=== PATIENT | male | born 1990 | race Caucasian/White ===

== ENCOUNTER 2017-04-06 16:09 | Emergency (ER) | payer SELFPAY ==
--- NOTE | 2017-04-06 16:31 | EDM.PDOC ---
ED HPI GENERAL MEDICAL PROBLEM - General Chief Complaint: Upper Extremity Injury/Pain Stated Complaint: ALL OVER PAIN Time Seen by Provider: 04/06/17 16:31 Source of Information: Reports: Patient History Limitations: Reports: No Limitations - History of Present Illness INITIAL COMMENTS - FREE TEXT/NARRATIVE: HISTORY AND PHYSICAL: History of present illness: [Comes to the emergency room with multiple complaints including discomfort to his left neck, swelling to his left hand and pain to his right knee. He woke up with all of these symptoms on the morning of 04/02. He was evaluated at [facility] on that date and was notified of normal lab results today. He re- presented to [facility] this afternoon and was advised to come to the ER for evaluation and workup. Has felt feverish and had chills for the past 3 days. No earaches sore throat or runny nose. He was treated for sinusitis with amoxicillin prescribed at [place] which he completed prior to development of these symptoms. No abdominal pain nausea or vomiting. He has had decreased appetite for the past couple of days. No Abdominal pain. No change in bowel or bladder. He has no other complaints or concerns at this time. Denies any trauma or known injury to his left hand.] Review of systems: As per history of present illness and below otherwise all systems reviewed and negative. Past medical history: As per history of present illness and as reviewed below otherwise noncontributory. Surgical history: As per history of present illness and as reviewed below otherwise noncontributory. Social history: No reported history of drug or alcohol abuse. Family history: As per history of present illness and as reviewed below otherwise noncontributory. Physical exam: HEENT: Atraumatic, normocephalic. Oral mucous membranes are pink and moist. Nares are patent. Neck is supple. There is no lymphadenopathy or tenderness appreciated with palpation. Sinuses are not edematous or tender. Lungs: Clear to auscultation, breath sounds equal bilaterally. Heart: S1S2, regular rate and rhythm., No murmur. Abdomen: Soft, nondistended, nontender. Negative for masses guarding or rebound. Negative for costovertebral tenderness. Pelvis: Stable nontender. Genitourinary: Deferred. Rectal: Deferred. Extremities: Dorsum of left hand is swollen and erythematous. Erythema appears to begin to the PIP joint of his thumb and extends across the dorsum of his hand. Continues to spread well patient is in the emergency room. Is tender with palpation. No scabs, lesions or rashes. No wounds or evidence of trauma. Radial pulses are 2+ and equal bilaterally. Neurovascular unremarkable. Neuro: Awake, alert, oriented. Motor and sensory unremarkable throughout. Exam nonfocal. Diagnostics: [L hand x-ray, CBC, CMP] Therapeutics: [Rocephin 1 g IM, Toradol 30 mg IM, Tylenol 1000 mg by mouth] Impression: [Left hand cellulitis] Plan: [Discussed lab and x-ray findings with patient. Will treat as a left hand cellulitis with Rocephin 1 g in the ER. Toradol 30 mg IM and acetaminophen 1000 mg by mouth given for pain. Rx written for clindamycin 300 mg #40 sig one by mouth every 6 hours for 10 days 0 refills. Urged him to establish care with a local PCP. Strict return precautions are reviewed with the patient and his family. They are in agreement with today's plan.] Definitive disposition and diagnosis as appropriate pending reevaluation and review of above. Left Hand Pain Score (Numeric/FACES): 7 - Related Data Allergies Allergy/AdvReac Type Severity Reaction Status Date / Time No Known Allergies Allergy Verified 04/06/17 16:22 Home Meds: Home Meds . [No Known Home Meds] 04/06/17 [History] Past Medical History - Past Health History Medical/Surgical History: Denies Medical/Surgical History - Infectious Disease History Infectious Disease History: Reports: Chicken Pox - Past Surgical History GI Surgical History: Reports: Appendectomy Social & Family History - Family History Family Medical History: Noncontributory - Tobacco Use Smoking Status *Q: Current Every Day Smoker Years of Tobacco use: 15 Packs/Tins Daily: 0.5 - Recreational Drug Use Recreational Drug Use: No Review of Systems - Review of Systems Review Of Systems: ROS reveals no pertinent complaints other than HPI. ED EXAM, GENERAL - Physical Exam Exam: See Below Course - Vital Signs Last Recorded V/S: Last Vital Signs Temp 99.2 F 04/06/17 18:37 Pulse 102 H 04/06/17 18:37 Resp 16 04/06/17 18:37 BP 119/77 04/06/17 18:37 Pulse Ox 96 04/06/17 18:37 - Orders/Labs/Meds Orders: Active Orders 24 hr Category Date Time Status Hand 2V Lt [CR] Stat Exams 04/06/17 17:01 Taken Labs: Laboratory Tests 04/06/17 04/06/17 Range/Units 17:27 17:27 WBC 14.51 H (4.0-11.0) K/uL RBC 5.39 (4.50-5.90) M/uL Hgb 15.4 (13.0-17.0) g/dL Hct 46.6 (38.0-50.0) % MCV 86.5 (80.0-98.0) fL MCH 28.6 (27.0-32.0) pg MCHC 33.0 (31.0-37.0) g/dL RDW Std Deviation 41.7 (28.0-62.0) fl RDW Coeff of Rosario 13 (11.0-15.0) % Plt Count 279 (150-400) K/uL MPV 9.20 (7.40-12.00) fL Neut % (Auto) 73.6 (48.0-80.0) % Lymph % (Auto) 16.2 (16.0-40.0) % [place] % (Auto) 7.8 (0.0-15.0) % Eos % (Auto) 2.3 (0.0-7.0) % Baso % (Auto) 0.1 (0.0-1.5) % Neut # (Auto) 10.7 H (1.4-5.7) K/uL Lymph # (Auto) 2.4 (0.6-2.4) K/uL [place] # (Auto) 1.1 H (0.0-0.8) K/uL Eos # (Auto) 0.3 (0.0-0.7) K/uL Baso # (Auto) 0.0 (0.0-0.1) K/uL Nucleated RBC % 0.0 /100WBC Nucleated RBCs # 0 K/uL Sodium 138 (136-146) mmol/L Potassium 3.8 (3.5-5.1) mmol/L Chloride 101 (98-110) mmol/L Carbon Dioxide 27 (21-31) mmol/L BUN 9 (6.0-23.0) mg/dL Creatinine 0.8 (0.6-1.5) mg/dL Est Cr Clr Drug Dosing 131.81 mL/min Estimated GFR (MDRD) > 60.0 ml/min Glucose 97 (60-110) mg/dL Calcium 9.6 (8.8-10.8) mg/dL Total Bilirubin 0.3 (0.1-1.5) mg/dL AST 26 (5-40) IU/L ALT 44 (8-54) IU/L Alkaline Phosphatase 110 (40-150) Total Protein 7.9 (6.0-8.0) g/dL Albumin 3.8 (3.5-5.0) g/dL Globulin 4.1 H (2.0-3.5) g/dL Albumin/Globulin Ratio 0.9 L (1.3-2.8) Meds: Medications Discontinued Medications Generic Name Dose Route Start Last Admin Trade Name Freq PRN Reason Stop Dose Admin Acetaminophen 1,000 mg 04/06/17 18:35 Tylenol Extra Strength PO 04/06/17 18:36 ONETIME ONE Ceftriaxone Sodium 1,000 mg/ 4 mls @ 4 mls/sec 04/06/17 18:35 Lidocaine HCl IM 04/06/17 18:36 ONETIME ONE Ketorolac Tromethamine 60 mg 04/06/17 18:35 Toradol IM 04/06/17 18:36 ONETIME ONE Departure - Departure Time of Disposition: 18:52 Disposition: Home, Self-Care 01 Condition: Good Clinical Impression: Cellulitis of left hand - Discharge Information Referrals: PCP,None [Primary Care Provider] - Forms: ED Department Discharge Additional Instructions: The following information is given to patients seen in the emergency department who are being discharged to home. This information is to outline your options for follow-up care. We provide all patients seen in our emergency department with a follow-up referral. The need for follow-up, as well as the timing and circumstances, are variable depending upon the specifics of your emergency department visit. If you don't have a primary care physician on staff, we will provide you with a referral. We always advise you to contact your personal physician following an emergency department visit to inform them of the circumstance of the visit and for follow-up with them and/or the need for any referrals to a consulting specialist. The emergency department will also refer you to a specialist when appropriate. This referral assures that you have the opportunity for follow-up care with a specialist. All of these measure are taken in an effort to provide you with optimal care, which includes your follow-up. Under all circumstances we always encourage you to contact your private physician who remains a resource for coordinating your care. When calling for follow-up care, please make the office aware that this follow-up is from your recent emergency room visit. If for any reason you are refused follow-up, please contact the emergency department at and asked to speak to the emergency department charge nurse. Primary Care [address] [place] [id number] Establish care with a local primary care provider in follow-up there in the next 48-72 hours. Tylenol or ibuprofen as needed for discomfort. Return to ER as needed as discussed. - My Orders Last 24 Hours: My Active Orders 04/06/17 17:01 Hand 2V Lt [CR] Stat - Assessment/Plan Last 24 Hours: My Active Orders 04/06/17 17:01 Hand 2V Lt [CR] Stat
[2017-04-06 18:03] LABS: CHLORIDE,CL 101 mmol/L (98-110); SODIUM,NA 138 mmol/L (136-146)
[2017-04-06] MEDS ORDERED: cefTRIAXone 1,000 MG in Lidocaine 1% 4 ML IM ONE (18:35)
[2017-04-06] MEDS ORDERED: Ketorolac 60 MG/2 ML SDV IM ONE (18:35)
[2017-04-06] MEDS ORDERED: Acetaminophen 500 MG Tab PO ONE (18:35)
--- NOTE | 2017-04-07 13:59 | CR ---
EXAM DATE: 04/06/17 PATIENT'S AGE: 27 Patient: ROSINA PALMA Facility: [place], [place] Site . Site : 1990 Study: XRay Extremity hand [id number] 5:31:31 PM Ordering Physician: Jenny Potter Final Report: INDICATION: Pain and swelling. No known injury. TECHNIQUE: Left hand, two views. COMPARISON: None FINDINGS: Bones: Ulnar minus variance. No acute fractures or aggressive osseous lesions seen. Joint spaces: The carpal and metacarpal-phalangeal joints are unremarkable in appearance. The interphalangeal joints are normal in appearance. Soft tissues: Unremarkable. No radiopaque foreign bodies are noted. IMPRESSION: 1. No acute osseous injuries are identified. 2. Ulnar minus variance of the left wrist. Dictated by Armand Pham MD @ 04/06/2017 6:15:46 PM Dictated by: Armand Pham MD @ 04/06/2017 18:15:52 (Electronic Signature) Report Signed by Proxy. [facility] HOSPITALFroy
== END 2017-04-06 19:37 | disposition home or self-care (01) ==
LOC: MW.ED 16:09
DX: L03.114 Cellulitis of left upper limb (principal); F17.210 Nicotine dependence, cigarettes, uncomplicated
CPT/HCPCS: 36415; 73120; 80053; 85025; 96372; 99284; A9270; J0696; J1885; 99283

== ENCOUNTER 2017-04-15 19:49 | Inpatient (IN) | payer SELFPAY ==
[2017-04-15] MEDS ORDERED: Sodium Chloride 0.9% 1,000 ML IV ONE ×2 (20:35→22:45)
[2017-04-15] MEDS ORDERED: Ketorolac 30 MG/ML SDV IVPUSH ONE (20:35)
[2017-04-15] MEDS ORDERED: Acetaminophen 500 MG Tab PO ONE (20:51)
[2017-04-15 21:15] LABS: CHLORIDE,CL 105 mmol/L (98-110); SODIUM,NA 138 mmol/L (136-146)
[2017-04-15] MEDS ORDERED: Lidocaine 1% 20 ML MDV INJECT ONE (22:16)
--- NOTE | 2017-04-15 22:16 | EDM.PDOC ---
ED HPI GENERAL MEDICAL PROBLEM - General Chief Complaint: Lower Extremity Injury/Pain Stated Complaint: UNK Time Seen by Provider: 04/15/17 22:10 Source of Information: Reports: Patient, Provider - History of Present Illness INITIAL COMMENTS - FREE TEXT/NARRATIVE: He has been on po antibiotics for pain and erythema of the right knee. He has pain in the right knee and left shoulder and right ankle. no penile discharge no recent sexual relations no suspected STD no vomiting he might have had a fever no history of gout Right Knee Pain Score (Numeric/FACES): 10 - Related Data Allergies Allergy/AdvReac Type Severity Reaction Status Date / Time No Known Allergies Allergy Verified 04/15/17 20:18 Home Meds: Home Meds Clindamycin HCl 300 mg PO Q6H 04/15/17 [History] Past Medical History - Past Health History Medical/Surgical History: Denies Medical/Surgical History - Infectious Disease History Infectious Disease History: Reports: Chicken Pox - Past Surgical History GI Surgical History: Reports: Appendectomy Social & Family History - Family History Family Medical History: Noncontributory - Tobacco Use Smoking Status *Q: Current Every Day Smoker Years of Tobacco use: 17 Packs/Tins Daily: 1 - Caffeine Use Caffeine Use: Reports: Soda - Recreational Drug Use Recreational Drug Use: No Review of Systems - Review of Systems Review Of Systems: See Below (as per HPI) ED EXAM, GENERAL - Physical Exam Exam: See Below Free Text/Narrative:: alert nad right knee: held in flexion; warm and tender; erythema; moderate effusion; no deformity right ankle: mild diffuse tenderness without palpable swelling or increased warmth or erythema; no deformity left shoulder: mild diffuse warmth and tenderness; some pain with motion; no erythema; no deformity normal mentation ED TRAUMA EXTREMITY PROCEDURES - Additional/Other Procedure(s) Other (Free Text) Procedure(s): after verbal consent, the left knee was prepared by cleansing with betadine and hibiclens. Then about 5-20 ml of lidocaine 1% injected medial to the knee. The knee joint was then entered with a sterile 18 g needle and about 25 ml of cloudy / bloody/ purulent appearing joint fluid aspirated and sent for routine studies including crystal analysis. He tolerated the procedure without complications. Course - Vital Signs Last Recorded V/S: Last Vital Signs Temp 98.7 F 04/15/17 23:06 Pulse 92 04/15/17 23:06 Resp 17 04/15/17 23:06 BP 140/87 04/15/17 23:06 Pulse Ox 97 04/15/17 23:06 - Orders/Labs/Meds Orders: Active Orders 24 hr Category Date Time Status Patient Status [ADT] Routine ADT 04/15/17 23:52 Ordered Oxygen Therapy [RC] PRN Care 04/15/17 23:52 Ordered VTE/DVT Education [RC] PER UNIT ROUTINE Care 04/15/17 23:52 Ordered Vital Signs [RC] Q4H Care 04/15/17 23:52 Ordered Regular Diet [DIET] Diet 04/15/17 Breakfast Ordered Foot Comp Min 3V Rt [CR] Stat Exams 04/15/17 20:51 Taken Hand 2V Lt [CR] Stat Exams 04/15/17 20:51 Taken Knee 3V Rt [CR] Stat Exams 04/15/17 20:36 Taken GENEVA SCREEN RFLX [REF] AM Lab 04/16/17 05:11 Ordered C-REACTIVE PROTEIN [CHEM] Stat Lab 04/15/17 23:52 Ordered CBC WITH AUTO DIFF [HEME] AM Lab 04/16/17 05:11 Ordered CBC WITH AUTO DIFF [HEME] AM Lab 04/17/17 05:11 Ordered CBC WITH AUTO DIFF [HEME] AM Lab 04/18/17 05:11 Ordered COMPREHENSIVE METABOLIC PN,CMP [CHEM] AM Lab 04/16/17 05:11 Ordered COMPREHENSIVE METABOLIC PN,CMP [CHEM] AM Lab 04/17/17 05:11 Ordered COMPREHENSIVE METABOLIC PN,CMP [CHEM] AM Lab 04/18/17 05:11 Ordered CULTURE BODY FLUID + SMEAR [RM] Stat Lab 04/15/17 22:43 Ordered LYME/B.BURGDORFERI IGG/IGM [REF] Stat Lab 04/15/17 23:52 Ordered MAGNESIUM [CHEM] AM Lab 04/16/17 05:11 Ordered RHEUMATOID FACT.W/RFX TO TITER [CHEM] AM Lab 04/16/17 05:11 Ordered SEDIMENTATION RATE AUTO [HEME] AM Lab 04/16/17 05:11 Ordered Bisacodyl [Dulcolax] Med 04/15/17 23:52 Ordered 5 mg PO DAILY PRN Cefepime [Maxipime in D5W 1 GM/50 ML] 1 gm Med 04/15/17 23:45 Ordered Premix Bag 1 bag IV Q8H Docusate Sodium [Colace] Med 04/15/17 23:52 Ordered 100 mg PO BID PRN Ibuprofen [Motrin] Med 04/16/17 06:00 Ordered 400 mg PO TID Ketorolac [Toradol] Med 04/15/17 23:52 Ordered 30 mg IV Q6H PRN Morphine Med 04/15/17 23:52 Ordered 5 mg IVPUSH Q2H PRN Sodium Chloride 0.9% [Saline Flush] Med 04/15/17 23:52 Ordered 10 ml FLUSH ASDIRECTED PRN Sodium Chloride 0.9% [Saline Flush] Med 04/15/17 23:52 Ordered 2.5 ml FLUSH ASDIRECTED PRN Temazepam [Restoril] Med 04/15/17 23:52 Ordered 15 mg PO BEDTIME PRN Vancomycin 1.5 gm Med 04/16/17 00:00 Active Sodium Chloride 0.9% [Normal Saline] 500 ml IV ONETIME Vancomycin Pharmacy to Dose [Pharmacy to Dose - Med 04/15/17 23:45 Ordered Vancomycin] 1 dose .XX ASDIRECTED methylPREDNISolone Sod Succ [Solu-MEDROL] Med 04/15/17 23:45 Ordered 125 mg IVPUSH Q12H Saline Lock Insert [OM.PC] Routine Oth 04/15/17 23:52 Ordered Resuscitation Status Routine Resus Stat 04/15/17 23:52 Ordered Medication Orders Bisacodyl (Dulcolax) 5 mg PO DAILY PRN PRN Reason: Constipation Docusate Sodium (Colace) 100 mg PO BID PRN PRN Reason: Constipation Cefepime HCl 1 gm/ Premix 50 mls @ 100 mls/hr IV Q8H AYAH Vancomycin HCl 1.5 gm/ Sodium (Chloride) 500 mls @ 333.333 mls/hr IV ONETIME ONE Stop: 04/16/17 01:29 Ibuprofen (Motrin) 400 mg PO TID AYAH Ketorolac Tromethamine (Toradol) 30 mg IV Q6H PRN PRN Reason: Pain (moderate 4-6) Methylprednisolone Sodium Succinate (Solu-Medrol) 125 mg IVPUSH Q12H AYAH Vancomycin HCl (Pharmacy To Dose - Vancomycin) 1 dose .XX ASDIRECTED [facility] Labs: Laboratory Tests 04/15/17 04/15/17 04/15/17 Range/Units 20:45 20:45 20:45 WBC 19.04 H (4.0-11.0) K/uL RBC 5.58 (4.50-5.90) M/uL Hgb 16.0 (13.0-17.0) g/dL Hct 46.6 (38.0-50.0) % MCV 83.5 (80.0-98.0) fL MCH 28.7 (27.0-32.0) pg MCHC 34.3 (31.0-37.0) g/dL RDW Std Deviation 38.5 (28.0-62.0) fl RDW Coeff of Rosario 13 (11.0-15.0) % Plt Count 372 (150-400) K/uL MPV 8.80 (7.40-12.00) fL Neut % (Auto) 76.2 (48.0-80.0) % Lymph % (Auto) 14.3 L (16.0-40.0) % [place] % (Auto) 8.2 (0.0-15.0) % Eos % (Auto) 1.0 (0.0-7.0) % Baso % (Auto) 0.3 (0.0-1.5) % Neut # (Auto) 14.5 H (1.4-5.7) K/uL Lymph # (Auto) 2.7 H (0.6-2.4) K/uL [place] # (Auto) 1.6 H (0.0-0.8) K/uL Eos # (Auto) 0.2 (0.0-0.7) K/uL Baso # (Auto) 0.1 (0.0-0.1) K/uL Nucleated RBC % 0.0 /100WBC Nucleated RBCs # 0 K/uL ESR (0-14) mm/hr Lactate 1.4 (0.20-2.00) mmol/L Sodium 138 (136-146) mmol/L Potassium 3.8 (3.5-5.1) mmol/L Chloride 105 (98-110) mmol/L Carbon Dioxide 19 L (21-31) mmol/L BUN 13 (6.0-23.0) mg/dL Creatinine 0.9 (0.6-1.5) mg/dL Est Cr Clr Drug Dosing 117.17 mL/min Estimated GFR (MDRD) > 60.0 ml/min Glucose 98 (60-110) mg/dL Uric Acid (2.1-7.4) mg/dL Calcium 9.6 (8.8-10.8) mg/dL Total Bilirubin 0.4 (0.1-1.5) mg/dL AST 65 H (5-40) IU/L ALT 134 H (8-54) IU/L Alkaline Phosphatase 130 (40-150) Total Protein 8.8 H (6.0-8.0) g/dL Albumin 4.0 (3.5-5.0) g/dL Globulin 4.8 H (2.0-3.5) g/dL Albumin/Globulin Ratio 0.8 L (1.3-2.8) Amylase 42 (10-90) U/L Lipase < 9 (7-80) U/L Fluid Type Fluid Color Fluid Appearance Fluid pH Fluid WBC K/uL Fluid RBC M/uL Fluid Mononuclear Cell % Fl Polymorphonucl Cell % Fluid Crystals Fluid Glucose mg/dL Fluid Total Protein g/dL 04/15/17 04/15/17 04/15/17 Range/Units 20:45 20:45 22:39 WBC (4.0-11.0) K/uL RBC (4.50-5.90) M/uL Hgb (13.0-17.0) g/dL Hct (38.0-50.0) % MCV (80.0-98.0) fL MCH (27.0-32.0) pg MCHC (31.0-37.0) g/dL RDW Std Deviation (28.0-62.0) fl RDW Coeff of Rosario (11.0-15.0) % Plt Count (150-400) K/uL MPV (7.40-12.00) fL Neut % (Auto) (48.0-80.0) % Lymph % (Auto) (16.0-40.0) % [place] % (Auto) (0.0-15.0) % Eos % (Auto) (0.0-7.0) % Baso % (Auto) (0.0-1.5) % Neut # (Auto) (1.4-5.7) K/uL Lymph # (Auto) (0.6-2.4) K/uL [place] # (Auto) (0.0-0.8) K/uL Eos # (Auto) (0.0-0.7) K/uL Baso # (Auto) (0.0-0.1) K/uL Nucleated RBC % /100WBC Nucleated RBCs # K/uL ESR 2 (0-14) mm/hr Lactate (0.20-2.00) mmol/L Sodium (136-146) mmol/L Potassium (3.5-5.1) mmol/L Chloride (98-110) mmol/L Carbon Dioxide (21-31) mmol/L BUN (6.0-23.0) mg/dL Creatinine (0.6-1.5) mg/dL Est Cr Clr Drug Dosing mL/min Estimated GFR (MDRD) ml/min Glucose (60-110) mg/dL Uric Acid 6.4 (2.1-7.4) mg/dL Calcium (8.8-10.8) mg/dL Total Bilirubin (0.1-1.5) mg/dL AST (5-40) IU/L ALT (8-54) IU/L Alkaline Phosphatase (40-150) Total Protein (6.0-8.0) g/dL Albumin (3.5-5.0) g/dL Globulin (2.0-3.5) g/dL Albumin/Globulin Ratio (1.3-2.8) Amylase (10-90) U/L Lipase (7-80) U/L Fluid Type SYN Fluid Color [place]ARREN Fluid Appearance TURBID Fluid pH 7.5 Fluid WBC 17.19 K/uL Fluid RBC 0.02 M/uL Fluid Mononuclear Cell 28.0 % Fl Polymorphonucl Cell 72.0 % Fluid Crystals NONE SEEN Fluid Glucose 74 mg/dL Fluid Total Protein 5.1 g/dL Meds: Medications Generic Name Dose Route Start Last Admin Trade Name Freq PRN Reason Stop Dose Admin Bisacodyl 5 mg 04/15/17 23:52 Dulcolax PO DAILY PRN Constipation Docusate Sodium 100 mg 04/15/17 23:52 Colace PO BID PRN Constipation Cefepime HCl 1 gm/ Premix 50 mls @ 100 mls/hr 04/15/17 23:45 IV Q8H AYAH Vancomycin HCl 1.5 gm/ Sodium 500 mls @ 333.333 mls/hr 04/16/17 00:00 Chloride IV 04/16/17 01:29 ONETIME ONE Ibuprofen 400 mg 04/16/17 06:00 Motrin PO TID [facility] Ketorolac Tromethamine 30 mg 04/15/17 23:52 Toradol IV Q6H PRN Pain (moderate 4-6) Methylprednisolone Sodium Succinate 125 mg 04/15/17 23:45 Solu-Medrol IVPUSH Q12H [facility] Vancomycin HCl 1 dose 04/15/17 23:45 Pharmacy To Dose - Vancomycin .XX ASDIRECTED [facility] Discontinued Medications Generic Name Dose Route Start Last Admin Trade Name Freq PRN Reason Stop Dose Admin Acetaminophen 1,000 mg 04/15/17 20:51 04/15/17 20:59 Tylenol Extra Strength PO 04/15/17 20:52 1,000 mg ONETIME ONE Administration Sodium Chloride 1,000 mls @ 999 mls/hr 04/15/17 20:35 04/15/17 21:00 Normal Saline IV 04/15/17 21:35 999 mls/hr STAT ONE Administration Sodium Chloride 1,000 mls @ 999 mls/hr 04/15/17 22:45 04/15/17 22:59 Normal Saline IV 04/15/17 23:45 999 mls/hr STAT ONE Administration Ketorolac Tromethamine 30 mg 04/15/17 20:35 04/15/17 21:00 Toradol IVPUSH 04/15/17 20:36 30 mg ONETIME ONE Administration Lidocaine HCl 20 ml 04/15/17 22:16 04/15/17 22:19 Xylocaine 1% INJECT 04/15/17 22:17 20 ml ONETIME ONE Administration Lidocaine HCl Confirm 04/15/17 22:17 04/15/17 22:42 Xylocaine 1% Administered 04/15/17 22:18 Not Given Dose 20 ml .ROUTE .STK-MED ONE Lorazepam 2 mg 04/15/17 22:45 04/15/17 22:59 Ativan IVPUSH 04/15/17 22:46 2 mg ONETIME ONE Administration Departure - Departure Time of Disposition: 00:00 Disposition: Admitted As Inpatient 64 Condition: Fair Clinical Impression: Knee effusion, right - Discharge Information Referrals: PCP,None [Primary Care Provider] - Forms: ED Department Discharge Additional Instructions: will admit - My Orders Last 24 Hours: My Active Orders 04/15/17 22:43 CULTURE BODY FLUID + SMEAR [RM] Stat 04/15/17 23:45 Cefepime [Maxipime in D5W 1 GM/50 ML] 1 gm Premix Bag 1 bag IV Q8H Vancomycin Pharmacy to Dose [Pharmacy to Dose - Vancomycin] 1 dose .XX ASDIRECTED methylPREDNISolone Sod Succ [Solu-MEDROL] 125 mg IVPUSH Q12H 04/15/17 23:52 Patient Status [ADT] Routine Oxygen Therapy [RC] PRN VTE/DVT Education [RC] PER UNIT ROUTINE Vital Signs [RC] Q4H C-REACTIVE PROTEIN [CHEM] Stat LYME/B.BURGDORFERI IGG/IGM [REF] Stat Bisacodyl [Dulcolax] 5 mg PO DAILY PRN Docusate Sodium [Colace] 100 mg PO BID PRN Ketorolac [Toradol] 30 mg IV Q6H PRN Morphine 5 mg IVPUSH Q2H PRN Sodium Chloride 0.9% [Saline Flush] 10 ml FLUSH ASDIRECTED PRN Sodium Chloride 0.9% [Saline Flush] 2.5 ml FLUSH ASDIRECTED PRN Temazepam [Restoril] 15 mg PO BEDTIME PRN Saline Lock Insert [OM.PC] Routine Resuscitation Status Routine 04/15/17 Breakfast Regular Diet [DIET] 04/16/17 00:00 Vancomycin 1.5 gm Sodium Chloride 0.9% [Normal Saline] 500 ml IV ONETIME 04/16/17 05:11 GENEVA SCREEN RFLX [REF] AM CBC WITH AUTO DIFF [HEME] AM COMPREHENSIVE METABOLIC PN,CMP [CHEM] AM MAGNESIUM [CHEM] AM RHEUMATOID FACT.W/RFX TO TITER [CHEM] AM SEDIMENTATION RATE AUTO [HEME] AM 04/16/17 06:00 Ibuprofen [Motrin] 400 mg PO TID 04/17/17 05:11 CBC WITH AUTO DIFF [HEME] AM COMPREHENSIVE METABOLIC PN,CMP [CHEM] AM 04/18/17 05:11 CBC WITH AUTO DIFF [HEME] AM COMPREHENSIVE METABOLIC PN,CMP [CHEM] AM - Assessment/Plan Last 24 Hours: My Active Orders 04/15/17 22:43 CULTURE BODY FLUID + SMEAR [RM] Stat 04/15/17 23:45 Cefepime [Maxipime in D5W 1 GM/50 ML] 1 gm Premix Bag 1 bag IV Q8H Vancomycin Pharmacy to Dose [Pharmacy to Dose - Vancomycin] 1 dose .XX ASDIRECTED methylPREDNISolone Sod Succ [Solu-MEDROL] 125 mg IVPUSH Q12H 04/15/17 23:52 Patient Status [ADT] Routine Oxygen Therapy [RC] PRN VTE/DVT Education [RC] PER UNIT ROUTINE Vital Signs [RC] Q4H C-REACTIVE PROTEIN [CHEM] Stat LYME/B.BURGDORFERI IGG/IGM [REF] Stat Bisacodyl [Dulcolax] 5 mg PO DAILY PRN Docusate Sodium [Colace] 100 mg PO BID PRN Ketorolac [Toradol] 30 mg IV Q6H PRN Morphine 5 mg IVPUSH Q2H PRN Sodium Chloride 0.9% [Saline Flush] 10 ml FLUSH ASDIRECTED PRN Sodium Chloride 0.9% [Saline Flush] 2.5 ml FLUSH ASDIRECTED PRN Temazepam [Restoril] 15 mg PO BEDTIME PRN Saline Lock Insert [OM.PC] Routine Resuscitation Status Routine 04/15/17 Breakfast Regular Diet [DIET] 04/16/17 00:00 Vancomycin 1.5 gm Sodium Chloride 0.9% [Normal Saline] 500 ml IV ONETIME 04/16/17 05:11 GENEVA SCREEN RFLX [REF] AM CBC WITH AUTO DIFF [HEME] AM COMPREHENSIVE METABOLIC PN,CMP [CHEM] AM MAGNESIUM [CHEM] AM RHEUMATOID FACT.W/RFX TO TITER [CHEM] AM SEDIMENTATION RATE AUTO [HEME] AM 04/16/17 06:00 Ibuprofen [Motrin] 400 mg PO TID 04/17/17 05:11 CBC WITH AUTO DIFF [HEME] AM COMPREHENSIVE METABOLIC PN,CMP [CHEM] AM 04/18/17 05:11 CBC WITH AUTO DIFF [HEME] AM COMPREHENSIVE METABOLIC PN,CMP [CHEM] AM
[2017-04-15] MEDS ORDERED: Lidocaine 1% 20 ML MDV ONE (22:17)
[2017-04-15] MEDS ORDERED: LORazepam 2 MG/ML SDV IVPUSH ONE (22:45)
[2017-04-15] MEDS ORDERED: Ketorolac 30 MG/ML SDV IV PRN (23:52)
[2017-04-15] MEDS ORDERED: Bisacodyl 5 MG Tab PO PRN (23:52)
[2017-04-15] MEDS ORDERED: Temazepam 15 MG Cap PO PRN (23:52)
[2017-04-15] MEDS ORDERED: Sodium Chloride 0.9% 2.5 ML Syringe FLUSH PRN (23:52)
[2017-04-15] MEDS ORDERED: Sodium Chloride 0.9% 10 ML Syringe FLUSH PRN (23:52)
[2017-04-15] MEDS ORDERED: Docusate Sodium 100 MG Cap PO PRN (23:52)
[2017-04-16] MEDS ORDERED: Vancomycin 1.5 GM in Sodium Chloride 0.9% 500 ML IV ONE ×2
[2017-04-16] MEDS: methylPREDNISolone Sodium Succinate 125 MG/2 ML SDV IVPUSH SCH ×2 (00:01→11:10)
[2017-04-16] MEDS: Sodium Chloride 0.9% 1,000 ML IV SCH ×3 (00:04→22:28)
--- NOTE | 2017-04-16 00:06 | PCM.HP ---
H&P History of Present Illness - General Date of Service: 04/16/17 Admit Problem/Dx: Admission Diagnosis/Problem Admission Diagnosis/Problem Inflammatory arthritis Source of Information: Patient, Family, Provider, RN - History of Present Illness Initial Comments - Free Text/Narative: He presented to the ED with right knee pain. He had been seen in the ER March 20 for knee pain and hand pain. NOw the knee pain and swelling is worse despite po antibiotics. He is unaware of any trauma He did go hiking several weeks ago but is unaware of any specific tick bites no recent STD symptoms no complaints of mucosal lesions he felt febrile he also has left shoulder pain and right ankle pain Right Knee Pain Score (Numeric/FACES): 10 - Related Data Allergies/Adverse Reactions: Allergies Allergy/AdvReac Type Severity Reaction Status Date / Time No Known Allergies Allergy Verified 04/15/17 20:18 Home Medications: Home Meds Clindamycin HCl 300 mg PO Q6H 04/15/17 [History] Past Medical History - Past Health History Medical/Surgical History: Denies Medical/Surgical History Cardiovascular History: Denies: Bypass, CAD, Heart Failure, Hypertension, [place] Respiratory History: Denies: COPD Gastrointestinal History: Denies: Cirrhosis Genitourinary History: Denies: Chronic Renal Insuffiency Musculoskeletal History: Denies: Connective Tissue Disease, Fibromyalgia, Gout Neurological History: Denies: CVA Endocrine/Metabolic History: Denies: Diabetes, Type I, Diabetes, Type II Oncologic (Cancer) History: Reports: None - Infectious Disease History Infectious Disease History: Reports: Chicken Pox - Past Surgical History GI Surgical History: Reports: Appendectomy Social & Family History - Family History Family Medical History: Noncontributory - Tobacco Use Smoking Status *Q: Current Every Day Smoker Years of Tobacco use: 17 Packs/Tins Daily: 1 - Caffeine Use Caffeine Use: Reports: Soda - Recreational Drug Use Recreational Drug Use: No H&P Review of Systems - Review of Systems: Review Of Systems: See Below General: Reports: Fever HEENT: Denies: Hearing Changes Pulmonary: Denies: Shortness of Breath, Cough, Sputum Cardiovascular: Denies: Chest Pain Gastrointestinal: Denies: Abdominal Pain, Black Stool, Bloody Stool, Hematemesis , Hematochezia, Melena, Nausea Genitourinary: Denies: Dysuria, Frequency, Hematuria Musculoskeletal: Reports: Shoulder Pain Psychiatric: Denies: Confusion Exam - Exam Exam: See Below - Vital Signs Vital Signs: Last Vital Signs Temp 98.7 F 04/15/17 23:06 Pulse 92 04/15/17 23:06 Resp 17 04/15/17 23:06 BP 140/87 04/15/17 23:06 Pulse Ox 97 04/15/17 23:06 Weight: 92.533 kg - Exam General: Alert, Oriented, Cooperative HEENT: EOMI Neck: Supple, Trachea Midline Lungs: Clear to Auscultation, Normal Respiratory Effort Cardiovascular: Regular Rate, Regular Rhythm GI/Abdominal Exam: Soft, Non-Tender (Male) Exam: Deferred Rectal (Males) Exam: Deferred Psychiatric: Alert. No: Agitated Physical Exam Comments:: right knee: with erythema and effusion; and tenderness ; increased warmth; arthrocentesis performed in the ED some tenderness about the left shoulder with pain with motion and with slight increase in temperature some tenderness about the right ankle but without swelling or increased temperature or erythema no LE edema - Patient Data Lab Results Last 24 hrs: Laboratory Results - last 24 hr 04/15/17 04/15/17 04/15/17 Range/Units 20:45 20:45 20:45 WBC 19.04 H (4.0-11.0) K/uL RBC 5.58 (4.50-5.90) M/uL Hgb 16.0 (13.0-17.0) g/dL Hct 46.6 (38.0-50.0) % MCV 83.5 (80.0-98.0) fL MCH 28.7 (27.0-32.0) pg MCHC 34.3 (31.0-37.0) g/dL RDW Std Deviation 38.5 (28.0-62.0) fl RDW Coeff of Rosario 13 (11.0-15.0) % Plt Count 372 (150-400) K/uL MPV 8.80 (7.40-12.00) fL Neut % (Auto) 76.2 (48.0-80.0) % Lymph % (Auto) 14.3 L (16.0-40.0) % [place] % (Auto) 8.2 (0.0-15.0) % Eos % (Auto) 1.0 (0.0-7.0) % Baso % (Auto) 0.3 (0.0-1.5) % Neut # (Auto) 14.5 H (1.4-5.7) K/uL Lymph # (Auto) 2.7 H (0.6-2.4) K/uL [place] # (Auto) 1.6 H (0.0-0.8) K/uL Eos # (Auto) 0.2 (0.0-0.7) K/uL Baso # (Auto) 0.1 (0.0-0.1) K/uL Nucleated RBC % 0.0 /100WBC Nucleated RBCs # 0 K/uL ESR (0-14) mm/hr Lactate 1.4 (0.20-2.00) mmol/L Sodium 138 (136-146) mmol/L Potassium 3.8 (3.5-5.1) mmol/L Chloride 105 (98-110) mmol/L Carbon Dioxide 19 L (21-31) mmol/L BUN 13 (6.0-23.0) mg/dL Creatinine 0.9 (0.6-1.5) mg/dL Est Cr Clr Drug Dosing 117.17 mL/min Estimated GFR (MDRD) > 60.0 ml/min Glucose 98 (60-110) mg/dL Uric Acid (2.1-7.4) mg/dL Calcium 9.6 (8.8-10.8) mg/dL Total Bilirubin 0.4 (0.1-1.5) mg/dL AST 65 H (5-40) IU/L ALT 134 H (8-54) IU/L Alkaline Phosphatase 130 (40-150) Total Protein 8.8 H (6.0-8.0) g/dL Albumin 4.0 (3.5-5.0) g/dL Globulin 4.8 H (2.0-3.5) g/dL Albumin/Globulin Ratio 0.8 L (1.3-2.8) Amylase 42 (10-90) U/L Lipase < 9 (7-80) U/L Fluid Type Fluid Color Fluid Appearance Fluid pH Fluid WBC K/uL Fluid RBC M/uL Fluid Mononuclear Cell % Fl Polymorphonucl Cell % Fluid Crystals Fluid Glucose mg/dL Fluid Total Protein g/dL 04/15/17 04/15/17 04/15/17 Range/Units 20:45 20:45 22:39 WBC (4.0-11.0) K/uL RBC (4.50-5.90) M/uL Hgb (13.0-17.0) g/dL Hct (38.0-50.0) % MCV (80.0-98.0) fL MCH (27.0-32.0) pg MCHC (31.0-37.0) g/dL RDW Std Deviation (28.0-62.0) fl RDW Coeff of Rosario (11.0-15.0) % Plt Count (150-400) K/uL MPV (7.40-12.00) fL Neut % (Auto) (48.0-80.0) % Lymph % (Auto) (16.0-40.0) % [place] % (Auto) (0.0-15.0) % Eos % (Auto) (0.0-7.0) % Baso % (Auto) (0.0-1.5) % Neut # (Auto) (1.4-5.7) K/uL Lymph # (Auto) (0.6-2.4) K/uL [place] # (Auto) (0.0-0.8) K/uL Eos # (Auto) (0.0-0.7) K/uL Baso # (Auto) (0.0-0.1) K/uL Nucleated RBC % /100WBC Nucleated RBCs # K/uL ESR 2 (0-14) mm/hr Lactate (0.20-2.00) mmol/L Sodium (136-146) mmol/L Potassium (3.5-5.1) mmol/L Chloride (98-110) mmol/L Carbon Dioxide (21-31) mmol/L BUN (6.0-23.0) mg/dL Creatinine (0.6-1.5) mg/dL Est Cr Clr Drug Dosing mL/min Estimated GFR (MDRD) ml/min Glucose (60-110) mg/dL Uric Acid 6.4 (2.1-7.4) mg/dL Calcium (8.8-10.8) mg/dL Total Bilirubin (0.1-1.5) mg/dL AST (5-40) IU/L ALT (8-54) IU/L Alkaline Phosphatase (40-150) Total Protein (6.0-8.0) g/dL Albumin (3.5-5.0) g/dL Globulin (2.0-3.5) g/dL Albumin/Globulin Ratio (1.3-2.8) Amylase (10-90) U/L Lipase (7-80) U/L Fluid Type SYN Fluid Color WARREN Fluid Appearance TURBID Fluid pH 7.5 Fluid WBC 17.19 K/uL Fluid RBC 0.02 M/uL Fluid Mononuclear Cell 28.0 % Fl Polymorphonucl Cell 72.0 % Fluid Crystals NONE SEEN Fluid Glucose 74 mg/dL Fluid Total Protein 5.1 g/dL Result Diagrams: 04/15/17 20:45 04/15/17 20:45 *Q Meaningful Use (ADM) - VTE *Q VTE Criteria *Q: - Stroke *Q Stroke Criteria *Q: - AMI *Q AMI Criteria *Q: - Problem List (1) Knee effusion, right SNOMED Code(s): 277563219 ICD Code: M25.461 - EFFUSION, RIGHT KNEE Status: Acute Current Visit: Yes Problem List Initiated/Reviewed/Updated: Yes Orders Last 24hrs: Active Orders 24 hr Category Date Time Status Patient Status [ADT] Routine ADT 04/15/17 23:52 Ordered Oxygen Therapy [RC] PRN Care 04/15/17 23:52 Ordered VTE/DVT Education [RC] PER UNIT ROUTINE Care 04/15/17 23:52 Ordered Vital Signs [RC] Q4H Care 04/15/17 23:52 Ordered Regular Diet [DIET] Diet 04/15/17 Breakfast Ordered Foot Comp Min 3V Rt [CR] Stat Exams 04/15/17 20:51 Taken Hand 2V Lt [CR] Stat Exams 04/15/17 20:51 Taken Knee 3V Rt [CR] Stat Exams 04/15/17 20:36 Taken GENEVA SCREEN RFLX [REF] AM Lab 04/16/17 05:11 Ordered C-REACTIVE PROTEIN [CHEM] Stat Lab 04/15/17 23:52 Ordered CBC WITH AUTO DIFF [HEME] AM Lab 04/16/17 05:11 Ordered CBC WITH AUTO DIFF [HEME] AM Lab 04/17/17 05:11 Ordered CBC WITH AUTO DIFF [HEME] AM Lab 04/18/17 05:11 Ordered COMPREHENSIVE METABOLIC PN,CMP [CHEM] AM Lab 04/16/17 05:11 Ordered COMPREHENSIVE METABOLIC PN,CMP [CHEM] AM Lab 04/17/17 05:11 Ordered COMPREHENSIVE METABOLIC PN,CMP [CHEM] AM Lab 04/18/17 05:11 Ordered CULTURE BODY FLUID + SMEAR [RM] Stat Lab 04/15/17 22:43 Ordered LYME/B.BURGDORFERI IGG/IGM [REF] Stat Lab 04/15/17 23:52 Ordered MAGNESIUM [CHEM] AM Lab 04/16/17 05:11 Ordered RHEUMATOID FACT.W/RFX TO TITER [CHEM] AM Lab 04/16/17 05:11 Ordered SEDIMENTATION RATE AUTO [HEME] AM Lab 04/16/17 05:11 Ordered Bisacodyl [Dulcolax] Med 04/15/17 23:52 Ordered 5 mg PO DAILY PRN Cefepime [Maxipime in D5W 1 GM/50 ML] 1 gm Med 04/15/17 23:45 Ordered Premix Bag 1 bag IV Q8H Docusate Sodium [Colace] Med 04/15/17 23:52 Ordered 100 mg PO BID PRN Ibuprofen [Motrin] Med 04/16/17 06:00 Ordered 400 mg PO TID Ketorolac [Toradol] Med 04/15/17 23:52 Ordered 30 mg IV Q6H PRN Morphine Med 04/15/17 23:52 Ordered 5 mg IVPUSH Q2H PRN Sodium Chloride 0.9% [Saline Flush] Med 04/15/17 23:52 Ordered 10 ml FLUSH ASDIRECTED PRN Sodium Chloride 0.9% [Saline Flush] Med 04/15/17 23:52 Ordered 2.5 ml FLUSH ASDIRECTED PRN Temazepam [Restoril] Med 04/15/17 23:52 Ordered 15 mg PO BEDTIME PRN Vancomycin 1.5 gm Med 04/16/17 00:00 Active Sodium Chloride 0.9% [Normal Saline] 500 ml IV ONETIME Vancomycin Pharmacy to Dose [Pharmacy to Dose - Med 04/15/17 23:45 Ordered Vancomycin] 1 dose .XX ASDIRECTED methylPREDNISolone Sod Succ [Solu-MEDROL] Med 04/15/17 23:45 Ordered 125 mg IVPUSH Q12H Saline Lock Insert [OM.PC] Routine Oth 04/15/17 23:52 Ordered Resuscitation Status Routine Resus Stat 04/15/17 23:52 Ordered Medication Orders Bisacodyl (Dulcolax) 5 mg PO DAILY PRN PRN Reason: Constipation Docusate Sodium (Colace) 100 mg PO BID PRN PRN Reason: Constipation Cefepime HCl 1 gm/ Premix 50 mls @ 100 mls/hr IV Q8H AYAH Vancomycin HCl 1.5 gm/ Sodium (Chloride) 500 mls @ 333.333 mls/hr IV ONETIME ONE Stop: 04/16/17 01:29 Ibuprofen (Motrin) 400 mg PO TID AYAH Ketorolac Tromethamine (Toradol) 30 mg IV Q6H PRN PRN Reason: Pain (moderate 4-6) Methylprednisolone Sodium Succinate (Solu-Medrol) 125 mg IVPUSH Q12H AYAH Morphine Sulfate (Morphine) 5 mg IVPUSH Q2H PRN PRN Reason: Pain (severe 7-10) Stop: 04/16/17 23:54 Sodium Chloride (Saline Flush) 10 ml FLUSH ASDIRECTED PRN PRN Reason: Keep Vein Open Sodium Chloride (Saline Flush) 2.5 ml FLUSH ASDIRECTED PRN PRN Reason: Keep Vein Open Temazepam (Restoril) 15 mg PO BEDTIME PRN PRN Reason: Sleep Vancomycin HCl (Pharmacy To Dose - Vancomycin) 1 dose .XX ASDIRECTED [facility] Assessment/Plan Comment:: admit see orders preliminary report by Dr Linda Alarcon indicates wbc but no crystals noted on joint fluid analysis. Gram stain is pending will cover with antibiotics pending work up see orders will add doxycycline for consideration of Lyme disease. Armand Duron MD
[2017-04-16] MEDS: Cefepime 1 GM in Premix Bag 1 BAG IV SCH ×2 (00:13→07:32)
[2017-04-16] MEDS ORDERED: Doxycycline 100 MG in Sodium Chloride 0.9% 100 ML IV SCH (00:15)
[2017-04-16] MEDS: Ibuprofen 400 MG Tab PO SCH ×3 (05:39→21:04)
[2017-04-16 06:32] LABS: CHLORIDE,CL 111 mmol/L (98-110); SODIUM,NA 138 mmol/L (136-146)
[2017-04-16] MEDS ORDERED: FLU Vacc QS 2017-18 (36mos UP)/PF 60 MCG/0.5 ML Syringe IM ONE (10:00)
--- NOTE | 2017-04-16 10:16 | PCM.PN ---
- General Info Date of Service: 04/16/17 Subjective Update: States he feels much better. He says that he was barely able to walk on presentation. This morning at the bedside, hes able to stand up and walk with minimal limping. He tells me his pain is much improved and controlled with motrin. The swelling of his knee joint has also decreased. He goes on to state that he has multiple joint pain and not just his right knee. He tells me that he has had ongoing pain in his right foot, left shoulder. States that he did however sweat throughout the night and feels that he may have had a fever. Those symptoms have subsided. Denies any chills, nausea, vomiting. - Review of Systems General: Reports: Other (see HPI) - Patient Data Vitals - Most Recent: Last Vital Signs Temp 36.2 C 04/16/17 08:00 Pulse 91 04/16/17 08:00 Resp 18 04/16/17 08:00 BP 129/69 04/16/17 08:00 Pulse Ox 98 04/16/17 08:00 Weight - Most Recent: 92 kg I&O - Last 24 Hours: Intake & Output 04/15/17 04/16/17 04/16/17 22:59 06:59 14:59 Intake Total 200 300 Balance 200 300 Lab Results Last 24 Hours: Laboratory Results - last 24 hr 04/16/17 04/16/17 04/16/17 Range/Units 05:35 05:35 05:35 WBC 16.42 H (4.0-11.0) K/uL RBC 5.05 (4.50-5.90) M/uL Hgb 14.2 (13.0-17.0) g/dL Hct 42.6 (38.0-50.0) % MCV 84.4 (80.0-98.0) fL MCH 28.1 (27.0-32.0) pg MCHC 33.3 (31.0-37.0) g/dL RDW Std Deviation 38.7 (28.0-62.0) fl RDW Coeff of Rosario 13 (11.0-15.0) % Plt Count 385 (150-400) K/uL MPV 9.10 (7.40-12.00) fL Neut % (Auto) 91.7 H (48.0-80.0) % Lymph % (Auto) 6.6 L (16.0-40.0) % [place] % (Auto) 1.5 (0.0-15.0) % Eos % (Auto) 0.1 (0.0-7.0) % Baso % (Auto) 0.1 (0.0-1.5) % Neut # (Auto) 15.1 H (1.4-5.7) K/uL Lymph # (Auto) 1.1 (0.6-2.4) K/uL [place] # (Auto) 0.2 (0.0-0.8) K/uL Eos # (Auto) 0.0 (0.0-0.7) K/uL Baso # (Auto) 0.0 (0.0-0.1) K/uL Nucleated RBC % 0.0 /100WBC Nucleated RBCs # 0 K/uL ESR 46 H (0-14) mm/hr Sodium 138 (136-146) mmol/L Potassium 4.2 (3.5-5.1) mmol/L Chloride 111 H (98-110) mmol/L Carbon Dioxide 19 L (21-31) mmol/L BUN 14 (6.0-23.0) mg/dL Creatinine 0.8 (0.6-1.5) mg/dL Est Cr Clr Drug Dosing 132.30 mL/min Estimated GFR (MDRD) > 60.0 ml/min Glucose 157 H (60-110) mg/dL Calcium 9.0 (8.8-10.8) mg/dL Magnesium 1.7 (1.5-2.3) mEq/L Total Bilirubin 0.3 (0.1-1.5) mg/dL AST 44 H (5-40) IU/L ALT 118 H (8-54) IU/L Alkaline Phosphatase 115 (40-150) Total Protein 7.6 (6.0-8.0) g/dL Albumin 3.5 (3.5-5.0) g/dL Globulin 4.1 H (2.0-3.5) g/dL Albumin/Globulin Ratio 0.9 L (1.3-2.8) Rheumatoid Factor Scrn NEGATIVE Med Orders - Current: Current Medications Bisacodyl (Dulcolax) 5 mg PO DAILY PRN PRN Reason: Constipation Docusate Sodium (Colace) 100 mg PO BID PRN PRN Reason: Constipation Doxycycline Hyclate (Vibramycin) 100 mg PO Q12HR [facility] Cefepime HCl 1 gm/ Premix 50 mls @ 100 mls/hr IV Q8H [facility] Last Admin: 04/16/17 07:32 Dose: 100 mls/hr Sodium Chloride (Normal Saline) 1,000 mls @ 125 mls/hr IV ASDIRECTED [facility] Last Admin: 04/16/17 00:04 Dose: 125 mls/hr Vancomycin HCl 1.25 gm/ Sodium (Chloride) 250 mls @ 166.667 mls/hr IV Q8H [facility] Last Admin: 04/16/17 08:10 Dose: 166.667 mls/hr Ibuprofen (Motrin) 400 mg PO TID [facility] Last Admin: 04/16/17 05:39 Dose: 400 mg Ketorolac Tromethamine (Toradol) 30 mg IV Q6H PRN PRN Reason: Pain (moderate 4-6) Methylprednisolone Sodium Succinate (Solu-Medrol) 125 mg IVPUSH Q12H [facility] Last Admin: 04/16/17 00:01 Dose: 125 mg Morphine Sulfate (Morphine) 5 mg IVPUSH Q2H PRN PRN Reason: Pain (severe 7-10) Sodium Chloride (Saline Flush) 10 ml FLUSH ASDIRECTED PRN PRN Reason: Keep Vein Open Sodium Chloride (Saline Flush) 2.5 ml FLUSH ASDIRECTED PRN PRN Reason: Keep Vein Open Temazepam (Restoril) 15 mg PO BEDTIME PRN PRN Reason: Sleep Vancomycin HCl (Pharmacy To Dose - Vancomycin) 1 dose .XX ASDIRECTED [facility] Discontinued Medications Acetaminophen (Tylenol Extra Strength) 1,000 mg PO ONETIME ONE Stop: 04/15/17 20:52 Last Admin: 04/15/17 20:59 Dose: 1,000 mg Sodium Chloride (Normal Saline) 1,000 mls @ 999 mls/hr IV STAT ONE Stop: 04/15/17 21:35 Last Admin: 04/15/17 21:00 Dose: 999 mls/hr Sodium Chloride (Normal Saline) 1,000 mls @ 999 mls/hr IV STAT ONE Stop: 04/15/17 23:45 Last Admin: 04/15/17 22:59 Dose: 999 mls/hr Vancomycin HCl 1.5 gm/ Sodium (Chloride) 500 mls @ 333.333 mls/hr IV ONETIME ONE Stop: 04/16/17 01:29 Last Admin: 04/16/17 01:07 Dose: 333.333 mls/hr Doxycycline Hyclate 100 mg/ (Sodium Chloride) 100 mls @ 100 mls/hr IV Q12H AYAH Last Admin: 04/16/17 02:51 Dose: 100 mls/hr Influenza Virus Vaccine (Pharmacy To Dose - Influenza Vaccine) 1 each IM ONETIME ONE Stop: 04/16/17 01:02 Influenza Virus Vaccine (Fluarix Quad [id number]) 60 mcg IM .ONCE ONE Stop: 04/16/17 10:01 Ketorolac Tromethamine (Toradol) 30 mg IVPUSH ONETIME ONE Stop: 04/15/17 20:36 Last Admin: 04/15/17 21:00 Dose: 30 mg Lidocaine HCl (Xylocaine 1%) 20 ml INJECT ONETIME ONE Stop: 04/15/17 22:17 Last Admin: 04/15/17 22:19 Dose: 20 ml Lidocaine HCl (Xylocaine 1%) Confirm Administered Dose 20 ml .ROUTE .STK-MED ONE Stop: 04/15/17 22:18 Last Admin: 04/15/17 22:42 Dose: Not Given Lorazepam (Ativan) 2 mg IVPUSH ONETIME ONE Stop: 04/15/17 22:46 Last Admin: 04/15/17 22:59 Dose: 2 mg - Exam General: Alert, Oriented, Cooperative, No Acute Distress Neck: Supple Lungs: Clear to Auscultation, Normal Respiratory Effort Cardiovascular: Regular Rate, Regular Rhythm, No Murmurs GI/Abdominal Exam: Normal Bowel Sounds, Soft, Non-Tender Back Exam: Normal Inspection, Full Range of Motion Extremities: Other (right knee medial joint line tenderness with minimal effusion. no erythema. no differences in temperature compared to unaffected leg. able to flex at the knee with minimal discomfort. left knee appears unaffected. bilateral ankle exam normal. ) Peripheral Pulses: 2+: Dorsalis Pedis (L), Dorsalis Pedis (R) Skin: Warm, Intact. No: Rash - Problem List Review Problem List Initiated/Reviewed/Updated: Yes - My Orders Last 24 Hours: My Active Orders 04/16/17 21:00 Doxycycline [Vibramycin] 100 mg PO Q12HR - Plan Plan:: A: #1. Right knee pain of unknown etiology #2. Leukocytosis #3. Elevated ESR #4. Elevated LFT's P: #1. Currently on Vancomycin, Cefepime, Doxycycline. Switched to PO doxycycline secondary to hospital shortage and equivalent bioavailability. #2. Motrin for pain control. Hasn't needed morphine or toradol which is ordered PRN. Will add tramadol PRN #3. Initial gram stain is negative, negative for crystals. #4. GENEVA, gonorrhea pending #5. Anticipate discharge 1-2 days.
[2017-04-16] MEDS: traMADol 50 MG Tab PO PRN (10:30)
--- NOTE | 2017-04-16 14:20 | PCM.SN ---
- Free Text/Narrative Note: I spoke with Dr Naik regarding management. Will arrange outpatient visit in [place] in about a week. I also spoke with Dr Kayleigh Ann who has kindly agreed to see the patient in consultation. I note elevated LFTs Will check RUQ abdominal ultrasound and hepatitis serology
--- NOTE | 2017-04-16 15:01 | PCM.CONS ---
<Lacey Nicholas - Last Filed: 04/16/17 15:18> H&P History of Present Illness - General Date of Service: 04/16/17 Admit Problem/Dx: Admission Diagnosis/Problem Admission Diagnosis/Problem Inflammatory arthritis Source of Information: Patient History Limitations: Reports: No Limitations - History of Present Illness Onset of Symptoms: Reports: Gradual Duration of Symptoms: Reports: Week(s): (2) Location: Reports: Upper Extremity, Left (Left wrist and shoulder.), Lower Extremity, Right (Right knee and ankle.) Quality: Reports: Other (Tightness in R knee.) Improves with: Reports: Other (Advil.) Associated Symptoms: Reports: Other (Fever.) Right Knee Pain Score (Numeric/FACES): 10 - Related Data Allergies/Adverse Reactions: Allergies Allergy/AdvReac Type Severity Reaction Status Date / Time No Known Allergies Allergy Verified 04/15/17 20:18 Home Medications: Home Meds Clindamycin HCl 300 mg PO Q6H 04/15/17 [History] Past Medical History - Past Health History Medical/Surgical History: Denies Medical/Surgical History Cardiovascular History: Denies: Bypass, CAD, Heart Failure, Hypertension, [place] Respiratory History: Denies: COPD Gastrointestinal History: Reports: Irritable Bowel Syndrome Genitourinary History: Denies: Chronic Renal Insuffiency Musculoskeletal History: Denies: Connective Tissue Disease, Fibromyalgia, Gout Neurological History: Denies: CVA Endocrine/Metabolic History: Denies: Diabetes, Type I, Diabetes, Type II Oncologic (Cancer) History: Reports: None - Infectious Disease History Infectious Disease History: Reports: Chicken Pox - Past Surgical History GI Surgical History: Reports: Appendectomy Social & Family History - Family History Family Medical History: Noncontributory - Tobacco Use Smoking Status *Q: Current Every Day Smoker Years of Tobacco use: 17 Packs/Tins Daily: 0.5 Second Hand Smoke Exposure: No - Caffeine Use Caffeine Use: Reports: Soda - Alcohol Use Days Per Week of Alcohol Use: 1 Number of Drinks Per Day: 12 Total Drinks Per Week: 12 - Recreational Drug Use Recreational Drug Use: Yes Drug Use in Last 12 Months: Yes Recreational Drug Type: Reports: Marijuana/Hashish Recreational Drug Use Frequency: Daily H&P Review of Systems - Review of Systems: Review Of Systems: See Below General: Reports: No Symptoms HEENT: Reports: No Symptoms Pulmonary: Reports: No Symptoms Cardiovascular: Reports: No Symptoms Gastrointestinal: Reports: No Symptoms Genitourinary: Reports: No Symptoms Musculoskeletal: Reports: Leg Pain, Foot Pain, Joint Pain, Joint Swelling (R knee, L wrist.) Skin: Reports: No Symptoms Psychiatric: Reports: No Symptoms Neurological: Reports: No Symptoms Exam - Exam Exam: See Below - Vital Signs Vital Signs: Last Vital Signs Temp 36.3 C 04/16/17 12:00 Pulse 91 04/16/17 12:00 Resp 16 04/16/17 12:00 BP 139/80 04/16/17 12:00 Pulse Ox 97 04/16/17 12:00 Weight: 92 kg - Exam General: Alert, Oriented HEENT: Conjunctiva Clear, Hearing Intact, Nares Patent Neck: Trachea Midline Lungs: Normal Respiratory Effort Cardiovascular: Regular Rate Extremities: Other (R ankle- nontender with palpation. Full ROM. No swelling or erythema. R knee- nontender, warm with palpation. + Swelling. No erythema. ROM 0 -120. Pain will full flexion. Right anterior tibialis, extensor hallucis longus and gastrocnemius strength +5/5 bilaterally. Sensation intact. Dorsalis pedis and posterior tibial pulses +2 bilaterally. L wrist- nontender with palpation. + Swelling. Decreased ROM- approximately 20 degrees of active ROM. L shoulder- full active ROM. LUE sensation intact. ) Skin: Warm, Dry, Intact Neurological: Cranial Nerves Intact, Reflexes Equal Bilateral Neuro Extensive - Mental Status: Alert, Oriented x3, Normal Mood/Affect Psychiatric: Alert, Normal Affect, Normal Mood - Patient Data Lab Results Last 24 hrs: Laboratory Results - last 24 hr 04/16/17 04/16/17 04/16/17 Range/Units 05:35 05:35 05:35 WBC 16.42 H (4.0-11.0) K/uL RBC 5.05 (4.50-5.90) M/uL Hgb 14.2 (13.0-17.0) g/dL Hct 42.6 (38.0-50.0) % MCV 84.4 (80.0-98.0) fL MCH 28.1 (27.0-32.0) pg MCHC 33.3 (31.0-37.0) g/dL RDW Std Deviation 38.7 (28.0-62.0) fl RDW Coeff of Rosario 13 (11.0-15.0) % Plt Count 385 (150-400) K/uL MPV 9.10 (7.40-12.00) fL Neut % (Auto) 91.7 H (48.0-80.0) % Lymph % (Auto) 6.6 L (16.0-40.0) % Isabela % (Auto) 1.5 (0.0-15.0) % Eos % (Auto) 0.1 (0.0-7.0) % Baso % (Auto) 0.1 (0.0-1.5) % Neut # (Auto) 15.1 H (1.4-5.7) K/uL Lymph # (Auto) 1.1 (0.6-2.4) K/uL Isabela # (Auto) 0.2 (0.0-0.8) K/uL Eos # (Auto) 0.0 (0.0-0.7) K/uL Baso # (Auto) 0.0 (0.0-0.1) K/uL Nucleated RBC % 0.0 /100WBC Nucleated RBCs # 0 K/uL ESR 46 H (0-14) mm/hr Sodium 138 (136-146) mmol/L Potassium 4.2 (3.5-5.1) mmol/L Chloride 111 H (98-110) mmol/L Carbon Dioxide 19 L (21-31) mmol/L BUN 14 (6.0-23.0) mg/dL Creatinine 0.8 (0.6-1.5) mg/dL Est Cr Clr Drug Dosing 132.30 mL/min Estimated GFR (MDRD) > 60.0 ml/min Glucose 157 H (60-110) mg/dL Calcium 9.0 (8.8-10.8) mg/dL Magnesium 1.7 (1.5-2.3) mEq/L Total Bilirubin 0.3 (0.1-1.5) mg/dL AST 44 H (5-40) IU/L ALT 118 H (8-54) IU/L Alkaline Phosphatase 115 (40-150) Total Protein 7.6 (6.0-8.0) g/dL Albumin 3.5 (3.5-5.0) g/dL Globulin 4.1 H (2.0-3.5) g/dL Albumin/Globulin Ratio 0.9 L (1.3-2.8) Rheumatoid Factor Scrn NEGATIVE Result Diagrams: 04/16/17 05:35 04/16/17 05:35 Consult PN Assessment/Plan Procedures: Procedures COMPLETE CBC W/AUTO DIFF WBC (04/06/17) COMPREHEN METABOLIC PANEL (04/06/17) EMERGENCY DEPT VISIT (04/06/17) ROUTINE VENIPUNCTURE (04/06/17) THER/PROPH/DIAG INJ SC/IM (04/06/17) X-RAY EXAM OF HAND (04/06/17) Problem List Initiated/Reviewed/Updated: Yes Plan: HPI: Denies history of falls, bites, previous injuries to affected joints. Symptoms for 2 weeks, also reports hx of fever the past two weeks. Has been sexually active within the past two weeks. Denies history of prior joint pain/swelling. Assessment: Patient awake in bed. Pain well controlled with Advil. Reports R knee swelling significantly improved. Able to ambulate without assistance. Plan: Continue pain management. Continue abx. Pending Chlamydia/ Gonorrhea. F/U with [employer] employee. <Kayleigh Ann R - Last Filed: 04/16/17 16:04> H&P History of Present Illness - General Admit Problem/Dx: Admission Diagnosis/Problem Admission Diagnosis/Problem Inflammatory arthritis Exam - Vital Signs Vital Signs: Last Vital Signs Temp 97.3 F 04/16/17 12:00 Pulse 91 04/16/17 12:00 Resp 16 04/16/17 12:00 BP 139/80 04/16/17 12:00 Pulse Ox 97 04/16/17 12:00 - Patient Data Lab Results Last 24 hrs: Laboratory Results - last 24 hr 04/16/17 04/16/17 04/16/17 Range/Units 05:35 05:35 05:35 WBC 16.42 H (4.0-11.0) K/uL RBC 5.05 (4.50-5.90) M/uL Hgb 14.2 (13.0-17.0) g/dL Hct 42.6 (38.0-50.0) % MCV 84.4 (80.0-98.0) fL MCH 28.1 (27.0-32.0) pg MCHC 33.3 (31.0-37.0) g/dL RDW Std Deviation 38.7 (28.0-62.0) fl RDW Coeff of Rosario 13 (11.0-15.0) % Plt Count 385 (150-400) K/uL MPV 9.10 (7.40-12.00) fL Neut % (Auto) 91.7 H (48.0-80.0) % Lymph % (Auto) 6.6 L (16.0-40.0) % Isabela % (Auto) 1.5 (0.0-15.0) % Eos % (Auto) 0.1 (0.0-7.0) % Baso % (Auto) 0.1 (0.0-1.5) % Neut # (Auto) 15.1 H (1.4-5.7) K/uL Lymph # (Auto) 1.1 (0.6-2.4) K/uL Isabela # (Auto) 0.2 (0.0-0.8) K/uL Eos # (Auto) 0.0 (0.0-0.7) K/uL Baso # (Auto) 0.0 (0.0-0.1) K/uL Nucleated RBC % 0.0 /100WBC Nucleated RBCs # 0 K/uL ESR 46 H (0-14) mm/hr Sodium 138 (136-146) mmol/L Potassium 4.2 (3.5-5.1) mmol/L Chloride 111 H (98-110) mmol/L Carbon Dioxide 19 L (21-31) mmol/L BUN 14 (6.0-23.0) mg/dL Creatinine 0.8 (0.6-1.5) mg/dL Est Cr Clr Drug Dosing 132.30 mL/min Estimated GFR (MDRD) > 60.0 ml/min Glucose 157 H (60-110) mg/dL Calcium 9.0 (8.8-10.8) mg/dL Magnesium 1.7 (1.5-2.3) mEq/L Total Bilirubin 0.3 (0.1-1.5) mg/dL AST 44 H (5-40) IU/L ALT 118 H (8-54) IU/L Alkaline Phosphatase 115 (40-150) Total Protein 7.6 (6.0-8.0) g/dL Albumin 3.5 (3.5-5.0) g/dL Globulin 4.1 H (2.0-3.5) g/dL Albumin/Globulin Ratio 0.9 L (1.3-2.8) Rheumatoid Factor Scrn NEGATIVE Result Diagrams: 04/16/17 05:35 04/16/17 05:35 Consult PN Assessment/Plan Procedures: Procedures COMPLETE CBC W/AUTO DIFF WBC (04/06/17) COMPREHEN METABOLIC PANEL (04/06/17) EMERGENCY DEPT VISIT (04/06/17) ROUTINE VENIPUNCTURE (04/06/17) THER/PROPH/DIAG INJ SC/IM (04/06/17) X-RAY EXAM OF HAND (04/06/17) Plan: 1600 patient seen and examined. Agree with above note. States pain much better controlled today. Swelling in right knee decreased as well. No previous h/o inflammatory arthritis. Exam of R knee shows mild joint effusion. Diffuse TTP. ROM 0-110 degrees. NVI. Synovial studies reviewed. Shows WBC of 17,000, no crystals, culture negative x 1 day. XR negative. States ankle and shoulder pain nearly resolved. 1. pain management 2. abx per primary--current cultures negative, consider d/c if final cultures negative 3. await GC culture 4. recommend f/u with [employer] employee next week as directed 5. will follow--repeat labs tomorrow
[2017-04-16] MEDS: cefTRIAXone 1 GM in Premix Bag 1 BAG IV SCH (15:43)
--- NOTE | 2017-04-16 16:27 | CR ---
EXAM DATE: 04/15/17 PATIENT'S AGE: 27 Patient: ROSINA PALMA Facility: [place], [place] Site . Site : 1990 Study: XRay Extremity Left hand [id number]/[id number] 9:36:28 PM Ordering Physician: Doctor No Final Report: HISTORY: Pain and swelling. Technique: Left hand 2 views. Comparison: Radiographs 04/06/2017. Findings: No fracture or dislocation. Ulnar minus variance. Joint spaces are maintained. No erosions. Impression: No acute findings. No change since 04/06/2017. Dictated by Tariq Hanks MD @ Apr 15 2017 10:01PM (Electronic Signature) Report Signed by Proxy. MAXIM
--- NOTE | 2017-04-16 16:28 | CR ---
EXAM DATE: 04/15/17 PATIENT'S AGE: 27 Patient: ROSINA PALMA Facility: [place], [place] Site . Site : 1990 Study: XRay Extremity Right foot [id number]/12/2017 9:37:03 PM Ordering Physician: Doctor No Final Report: HISTORY: Swelling and pain. Technique: Right foot 3 views. Comparison: None. Findings: No fracture or dislocation. Joint spaces are maintained. No erosions. Tiny plantar calcaneal enthesophyte. Impression: No acute findings. Dictated by Tariq Hanks MD @ Apr 15 2017 10:04PM (Electronic Signature) Report Signed by Proxy. MAXIM
--- NOTE | 2017-04-16 16:29 | CR ---
EXAM DATE: 04/15/17 PATIENT'S AGE: 27 Patient: ROSINA PALMA Facility: [place], [place] Site . Site : 1990 Study: XRay Knee Right [id number]/12/[id number] 9:37:29 PM Ordering Physician: Doctor No Final Report: HISTORY: Pain. Technique: Right knee 3 views. Comparison: None. Findings: Small joint effusion. Joint spaces appear maintained. No erosions. No fracture. Impression: Joint effusion. No bone abnormality. Dictated by Tariq Hanks MD @ Apr 15 2017 10:05PM (Electronic Signature) Report Signed by Proxy. MAXIM
[2017-04-16] MEDS: Doxycycline 100 MG Cap PO SCH (21:06)
[2017-04-17] MEDS: Ibuprofen 400 MG Tab PO SCH ×3 (06:20→21:22)
[2017-04-17] MEDS: Sodium Chloride 0.9% 1,000 ML IV SCH (08:07)
--- NOTE | 2017-04-17 08:15 | PCM.CONSN ---
<Lacey Nicholas - Last Filed: 04/17/17 09:42> - General Info Date of Service: 04/17/17 Functional Status: Reports: Pain Controlled, Tolerating Diet, Ambulating, Urinating. Denies: New Symptoms - Review of Systems General: Reports: No Symptoms Pulmonary: Reports: No Symptoms Cardiovascular: Reports: No Symptoms Gastrointestinal: Reports: No Symptoms Genitourinary: Reports: No Symptoms Musculoskeletal: Reports: Joint Pain, Joint Swelling (R knee. L wrist.) Neurological: Reports: No Symptoms Psychiatric: Reports: No Symptoms - Patient Data Vitals - Most Recent: Last Vital Signs Temp 36.3 C 04/17/17 04:00 Pulse 83 04/17/17 04:00 Resp 18 04/17/17 04:00 BP 123/59 L 04/17/17 04:00 Pulse Ox 98 04/17/17 04:00 Weight - Most Recent: 92 kg I&O - Last 24 Hours: Intake & Output 04/16/17 04/17/17 04/17/17 22:59 06:59 14:59 Intake Total 2189 2106 1000 Output Total 300 1225 Balance 5701 094 4477 Lab Results Last 24 Hours: Laboratory Results - last 24 hr 04/17/17 Range/Units 07:28 WBC 22.06 H (4.0-11.0) K/uL RBC 4.74 (4.50-5.90) M/uL Hgb 13.4 (13.0-17.0) g/dL Hct 39.8 (38.0-50.0) % MCV 84.0 (80.0-98.0) fL MCH 28.3 (27.0-32.0) pg MCHC 33.7 (31.0-37.0) g/dL RDW Std Deviation 38.3 (28.0-62.0) fl RDW Coeff of Rosario 13 (11.0-15.0) % Plt Count 378 (150-400) K/uL MPV 9.30 (7.40-12.00) fL Add Manual Diff YES Neutrophils % (Manual) 70 (48.0-80.0) % Band Neutrophils % 7 % Lymphocytes % (Manual) 21 (16.0-40.0) % Monocytes % (Manual) 1 (0.0-15.0) % Eosinophils % (Manual) 1 (0.0-7.0) % Nucleated RBC % 0.0 /100WBC Absolute Seg Neuts 15.4 H (1.4-5.7) Band Neutrophils # 1.5 Lymphocytes # (Manual) 4.6 H (0.6-2.4) Monocytes # (Manual) 0.2 (0.0-0.8) Eosinophils # (Manual) 0.2 (0.0-0.7) Nucleated RBCs # 0 K/uL Med Orders - Current: Current Medications Bisacodyl (Dulcolax) 5 mg PO DAILY PRN PRN Reason: Constipation Docusate Sodium (Colace) 100 mg PO BID PRN PRN Reason: Constipation Doxycycline Hyclate (Vibramycin) 100 mg PO Q12HR [facility] Last Admin: 04/16/17 21:06 Dose: 100 mg Sodium Chloride (Normal Saline) 1,000 mls @ 125 mls/hr IV ASDIRECTED [facility] Last Admin: 04/17/17 08:07 Dose: 125 mls/hr Vancomycin HCl 1.25 gm/ Sodium (Chloride) 250 mls @ 166.667 mls/hr IV Q8H [facility] Last Admin: 04/16/17 23:30 Dose: 166.667 mls/hr Ceftriaxone Sodium/Dextrose 1 (gm/ Premix) 50 mls @ 100 mls/hr IV Q24H [facility] Last Admin: 04/16/17 15:43 Dose: 100 mls/hr Ibuprofen (Motrin) 400 mg PO TID [facility] Last Admin: 04/17/17 06:20 Dose: 400 mg Ketorolac Tromethamine (Toradol) 30 mg IV Q6H PRN PRN Reason: Pain (moderate 4-6) Morphine Sulfate (Morphine) 5 mg IVPUSH Q2H PRN PRN Reason: Pain (severe 7-10) Sodium Chloride (Saline Flush) 10 ml FLUSH ASDIRECTED PRN PRN Reason: Keep Vein Open Sodium Chloride (Saline Flush) 2.5 ml FLUSH ASDIRECTED PRN PRN Reason: Keep Vein Open Temazepam (Restoril) 15 mg PO BEDTIME PRN PRN Reason: Sleep Tramadol HCl (Ultram) 50 mg PO Q8H PRN PRN Reason: Pain Last Admin: 04/16/17 10:30 Dose: 50 mg Vancomycin HCl (Pharmacy To Dose - Vancomycin) 1 dose .XX ASDIRECTED [facility] Discontinued Medications Acetaminophen (Tylenol Extra Strength) 1,000 mg PO ONETIME ONE Stop: 04/15/17 20:52 Last Admin: 04/15/17 20:59 Dose: 1,000 mg Sodium Chloride (Normal Saline) 1,000 mls @ 999 mls/hr IV STAT ONE Stop: 04/15/17 21:35 Last Admin: 04/15/17 21:00 Dose: 999 mls/hr Sodium Chloride (Normal Saline) 1,000 mls @ 999 mls/hr IV STAT ONE Stop: 04/15/17 23:45 Last Admin: 04/15/17 22:59 Dose: 999 mls/hr Cefepime HCl 1 gm/ Premix 50 mls @ 100 mls/hr IV Q8H [facility] Last Admin: 04/16/17 07:32 Dose: 100 mls/hr Vancomycin HCl 1.5 gm/ Sodium (Chloride) 500 mls @ 333.333 mls/hr IV ONETIME ONE Stop: 04/16/17 01:29 Last Admin: 04/16/17 01:07 Dose: 333.333 mls/hr Doxycycline Hyclate 100 mg/ (Sodium Chloride) 100 mls @ 100 mls/hr IV Q12H [facility] Last Admin: 04/16/17 02:51 Dose: 100 mls/hr Influenza Virus Vaccine (Pharmacy To Dose - Influenza Vaccine) 1 each IM ONETIME ONE Stop: 04/16/17 01:02 Influenza Virus Vaccine (Fluarix Quad [id number]) 60 mcg IM .ONCE ONE Stop: 04/16/17 10:01 Ketorolac Tromethamine (Toradol) 30 mg IVPUSH ONETIME ONE Stop: 04/15/17 20:36 Last Admin: 04/15/17 21:00 Dose: 30 mg Lidocaine HCl (Xylocaine 1%) 20 ml INJECT ONETIME ONE Stop: 04/15/17 22:17 Last Admin: 04/15/17 22:19 Dose: 20 ml Lidocaine HCl (Xylocaine 1%) Confirm Administered Dose 20 ml .ROUTE .STK-MED ONE Stop: 04/15/17 22:18 Last Admin: 04/15/17 22:42 Dose: Not Given Lorazepam (Ativan) 2 mg IVPUSH ONETIME ONE Stop: 04/15/17 22:46 Last Admin: 04/15/17 22:59 Dose: 2 mg Methylprednisolone Sodium Succinate (Solu-Medrol) 125 mg IVPUSH Q12H [facility] Last Admin: 04/16/17 11:10 Dose: 125 mg - Exam General: Alert, Oriented HEENT: Pupils Equal, Pupils Reactive Neck: Trachea Midline Lungs: Normal Respiratory Effort Cardiovascular: Regular Rate Extremities: Other Skin: Warm, Dry, Intact Neurological: No New Focal Deficit Psy/Mental Status: Alert, Normal Affect, Normal Mood Consult PN Assessment/Plan Procedures: Procedures COMPLETE CBC W/AUTO DIFF WBC (04/06/17) COMPREHEN METABOLIC PANEL (04/06/17) EMERGENCY DEPT VISIT (04/06/17) ROUTINE VENIPUNCTURE (04/06/17) THER/PROPH/DIAG INJ SC/IM (04/06/17) X-RAY EXAM OF HAND (04/06/17) Problem List Initiated/Reviewed/Updated: Yes Plan: Assessment: Patient up to bathroom. Pain well controlled. Able to ambulate without assistance. VSS. WBC and ESR increased today-- 22.06, 67. Plan: Continue pain management. Continue abx. GC culture pending. <Kayleigh Ann R - Last Filed: 04/17/17 17:25> - Patient Data Vitals - Most Recent: Last Vital Signs Temp 98.2 F 04/17/17 12:04 Pulse 83 04/17/17 04:00 Resp 18 04/17/17 12:04 BP 124/85 04/17/17 12:04 Pulse Ox 98 04/17/17 12:04 I&O - Last 24 Hours: Intake & Output 04/17/17 04/17/17 04/17/17 06:59 14:59 22:59 Intake Total 2106 1770 1690 Output Total 1225 1450 Balance 881 1770 240 Lab Results Last 24 Hours: Laboratory Results - last 24 hr 04/16/17 04/17/17 04/17/17 Range/Units 01:30 07:28 07:28 WBC 22.06 H (4.0-11.0) K/uL RBC 4.74 (4.50-5.90) M/uL Hgb 13.4 (13.0-17.0) g/dL Hct 39.8 (38.0-50.0) % MCV 84.0 (80.0-98.0) fL MCH 28.3 (27.0-32.0) pg MCHC 33.7 (31.0-37.0) g/dL RDW Std Deviation 38.3 (28.0-62.0) fl RDW Coeff of Rosario 13 (11.0-15.0) % Plt Count 378 (150-400) K/uL MPV 9.30 (7.40-12.00) fL Add Manual Diff YES Neutrophils % (Manual) 70 (48.0-80.0) % Band Neutrophils % 7 % Lymphocytes % (Manual) 21 (16.0-40.0) % Monocytes % (Manual) 1 (0.0-15.0) % Eosinophils % (Manual) 1 (0.0-7.0) % Nucleated RBC % 0.0 /100WBC Absolute Seg Neuts 15.4 H (1.4-5.7) Band Neutrophils # 1.5 Lymphocytes # (Manual) 4.6 H (0.6-2.4) Monocytes # (Manual) 0.2 (0.0-0.8) Eosinophils # (Manual) 0.2 (0.0-0.7) Nucleated RBCs # 0 K/uL ESR 67 H (0-14) mm/hr Sodium 140 (136-146) mmol/L Potassium 3.7 (3.5-5.1) mmol/L Chloride 111 H (98-110) mmol/L Carbon Dioxide 21 (21-31) mmol/L BUN 13 (6.0-23.0) mg/dL Creatinine 0.7 (0.6-1.5) mg/dL Est Cr Clr Drug Dosing 151.20 mL/min Estimated GFR (MDRD) > 60.0 ml/min Glucose 112 H (60-110) mg/dL Calcium 9.2 (8.8-10.8) mg/dL Total Bilirubin 0.2 (0.1-1.5) mg/dL AST 66 H (5-40) IU/L ALT 159 H (8-54) IU/L Alkaline Phosphatase 106 (40-150) C-Reactive Protein 4.47 H (0.0-0.5) mg/dL Total Protein 7.1 (6.0-8.0) g/dL Albumin 3.3 L (3.5-5.0) g/dL Globulin 3.8 H (2.0-3.5) g/dL Albumin/Globulin Ratio 0.9 L (1.3-2.8) Vancomycin Trough (5-15) ug/mL Chlamydia/GC Source URINE C.trachomatis RNA (TMA) Negative (Negative) N.gonorrhoeae RNA (TMA) Negative (Negative) 04/17/17 Range/Units 07:28 WBC (4.0-11.0) K/uL RBC (4.50-5.90) M/uL Hgb (13.0-17.0) g/dL Hct (38.0-50.0) % MCV (80.0-98.0) fL MCH (27.0-32.0) pg MCHC (31.0-37.0) g/dL RDW Std Deviation (28.0-62.0) fl RDW Coeff of Rosario (11.0-15.0) % Plt Count (150-400) K/uL MPV (7.40-12.00) fL Add Manual Diff Neutrophils % (Manual) (48.0-80.0) % Band Neutrophils % % Lymphocytes % (Manual) (16.0-40.0) % Monocytes % (Manual) (0.0-15.0) % Eosinophils % (Manual) (0.0-7.0) % Nucleated RBC % /100WBC Absolute Seg Neuts (1.4-5.7) Band Neutrophils # Lymphocytes # (Manual) (0.6-2.4) Monocytes # (Manual) (0.0-0.8) Eosinophils # (Manual) (0.0-0.7) Nucleated RBCs # K/uL ESR (0-14) mm/hr Sodium (136-146) mmol/L Potassium (3.5-5.1) mmol/L Chloride (98-110) mmol/L Carbon Dioxide (21-31) mmol/L BUN (6.0-23.0) mg/dL Creatinine (0.6-1.5) mg/dL Est Cr Clr Drug Dosing mL/min Estimated GFR (MDRD) ml/min Glucose (60-110) mg/dL Calcium (8.8-10.8) mg/dL Total Bilirubin (0.1-1.5) mg/dL AST (5-40) IU/L ALT (8-54) IU/L Alkaline Phosphatase (40-150) C-Reactive Protein (0.0-0.5) mg/dL Total Protein (6.0-8.0) g/dL Albumin (3.5-5.0) g/dL Globulin (2.0-3.5) g/dL Albumin/Globulin Ratio (1.3-2.8) Vancomycin Trough 7.6 (5-15) ug/mL Chlamydia/GC Source C.trachomatis RNA (TMA) (Negative) N.gonorrhoeae RNA (TMA) (Negative) Med Orders - Current: Current Medications Bisacodyl (Dulcolax) 5 mg PO DAILY PRN PRN Reason: Constipation Docusate Sodium (Colace) 100 mg PO BID PRN PRN Reason: Constipation Doxycycline Hyclate (Vibramycin) 100 mg PO Q12HR [facility] Last Admin: 04/17/17 08:46 Dose: 100 mg Ceftriaxone Sodium/Dextrose 1 (gm/ Premix) 50 mls @ 100 mls/hr IV Q24H [facility] Last Admin: 04/17/17 14:06 Dose: 100 mls/hr Vancomycin HCl 1.5 gm/ Sodium (Chloride) 500 mls @ 333.333 mls/hr IV Q8H [facility] Last Admin: 04/17/17 16:56 Dose: 333.333 mls/hr Ibuprofen (Motrin) 400 mg PO TID [facility] Last Admin: 04/17/17 13:27 Dose: 400 mg Ketorolac Tromethamine (Toradol) 30 mg IV Q6H PRN PRN Reason: Pain (moderate 4-6) Morphine Sulfate (Morphine) 5 mg IVPUSH Q2H PRN PRN Reason: Pain (severe 7-10) Pantoprazole Sodium (Protonix) 40 mg PO DAILY [facility] Last Admin: 04/17/17 11:18 Dose: 40 mg Prednisone (Prednisone) 60 mg PO DAILY [facility] Last Admin: 04/17/17 11:18 Dose: 60 mg Sodium Chloride (Saline Flush) 10 ml FLUSH ASDIRECTED PRN PRN Reason: Keep Vein Open Sodium Chloride (Saline Flush) 2.5 ml FLUSH ASDIRECTED PRN PRN Reason: Keep Vein Open Sodium Chloride (Saline Flush) 10 ml FLUSH ASDIRECTED PRN PRN Reason: Keep Vein Open Sodium Chloride (Saline Flush) 2.5 ml FLUSH ASDIRECTED PRN PRN Reason: Keep Vein Open Temazepam (Restoril) 15 mg PO BEDTIME PRN PRN Reason: Sleep Tramadol HCl (Ultram) 50 mg PO Q8H PRN PRN Reason: Pain Last Admin: 04/16/17 10:30 Dose: 50 mg Discontinued Medications Acetaminophen (Tylenol Extra Strength) 1,000 mg PO ONETIME ONE Stop: 04/15/17 20:52 Last Admin: 04/15/17 20:59 Dose: 1,000 mg Sodium Chloride (Normal Saline) 1,000 mls @ 999 mls/hr IV STAT ONE Stop: 04/15/17 21:35 Last Admin: 04/15/17 21:00 Dose: 999 mls/hr Sodium Chloride (Normal Saline) 1,000 mls @ 999 mls/hr IV STAT ONE Stop: 04/15/17 23:45 Last Admin: 04/15/17 22:59 Dose: 999 mls/hr Cefepime HCl 1 gm/ Premix 50 mls @ 100 mls/hr IV Q8H [facility] Last Admin: 04/16/17 07:32 Dose: 100 mls/hr Vancomycin HCl 1.5 gm/ Sodium (Chloride) 500 mls @ 333.333 mls/hr IV ONETIME ONE Stop: 04/16/17 01:29 Last Admin: 04/16/17 01:07 Dose: 333.333 mls/hr Sodium Chloride (Normal Saline) 1,000 mls @ 125 mls/hr IV ASDIRECTED [facility] Last Admin: 04/17/17 08:07 Dose: 125 mls/hr Doxycycline Hyclate 100 mg/ (Sodium Chloride) 100 mls @ 100 mls/hr IV Q12H [facility] Last Admin: 04/16/17 02:51 Dose: 100 mls/hr Vancomycin HCl 1.25 gm/ Sodium (Chloride) 250 mls @ 166.667 mls/hr IV Q8H [facility] Last Admin: 04/17/17 08:47 Dose: Not Given Vancomycin HCl 1.5 gm/ Sodium (Chloride) 500 mls @ 333.333 mls/hr IV Q8H [facility] Last Admin: 04/17/17 08:47 Dose: Not Given Influenza Virus Vaccine (Pharmacy To Dose - Influenza Vaccine) 1 each IM ONETIME ONE Stop: 04/16/17 01:02 Influenza Virus Vaccine (Fluarix Quad [id number]) 60 mcg IM .ONCE ONE Stop: 04/16/17 10:01 Ketorolac Tromethamine (Toradol) 30 mg IVPUSH ONETIME ONE Stop: 04/15/17 20:36 Last Admin: 04/15/17 21:00 Dose: 30 mg Lidocaine HCl (Xylocaine 1%) 20 ml INJECT ONETIME ONE Stop: 04/15/17 22:17 Last Admin: 04/15/17 22:19 Dose: 20 ml Lidocaine HCl (Xylocaine 1%) Confirm Administered Dose 20 ml .ROUTE .STK-MED ONE Stop: 04/15/17 22:18 Last Admin: 04/15/17 22:42 Dose: Not Given Lorazepam (Ativan) 2 mg IVPUSH ONETIME ONE Stop: 04/15/17 22:46 Last Admin: 04/15/17 22:59 Dose: 2 mg Methylprednisolone Sodium Succinate (Solu-Medrol) 125 mg IVPUSH Q12H [facility] Last Admin: 04/16/17 11:10 Dose: 125 mg Vancomycin HCl (Pharmacy To Dose - Vancomycin) 1 dose .XX ASDIRECTED [facility] Consult PN Assessment/Plan Procedures: Procedures COMPLETE CBC W/AUTO DIFF WBC (04/06/17) COMPREHEN METABOLIC PANEL (04/06/17) EMERGENCY DEPT VISIT (04/06/17) ROUTINE VENIPUNCTURE (04/06/17) THER/PROPH/DIAG INJ SC/IM (04/06/17) X-RAY EXAM OF HAND (04/06/17) Plan: 1730 Patient seen and examined. Agree with above. D/w Dr. Duron. Solumedrol d/c'd which may have caused flare. po prednisone started. Cultures negative to date. Dr. Duron has been in touch with reeling and tubing machine operator. Will see next week. Plan to continue prednisone and antibiotics until then. Exam today unremarkable other than swelling in L wrist and R knee. FROM. Will continue to observe.
[2017-04-17 08:21] LABS: CHLORIDE,CL 111 mmol/L (98-110); SODIUM,NA 140 mmol/L (136-146)
[2017-04-17] MEDS ORDERED: Vancomycin 1.5 GM in Sodium Chloride 0.9% 500 ML IV SCH (08:41)
[2017-04-17] MEDS: Doxycycline 100 MG Cap PO SCH ×2 (08:46→21:22)
[2017-04-17] MEDS: Vancomycin 1.5 GM in Sodium Chloride 0.9% 500 ML IV SCH ×2 (09:01→16:56)
[2017-04-17] MEDS ORDERED: predniSONE 20 MG Tab PO SCH (11:00)
--- NOTE | 2017-04-17 11:00 | US ---
EXAMINATION: Right upper quadrant ultrasound HISTORY: Elevated enzymes COMPARISON: None TECHNIQUE: Grayscale, color Doppler, and spectral Doppler images obtained. FINDINGS: The pancreas is not well visualized. The hepatic echotexture is mildly increased without a focal hepatic mass. The gallbladder wall thickness is normal at 2 mm. No pericholecystic fluid or sha dowing gallstones. The common bile duct measures 5 mm. The right kidney measures 11.4 cm [id number] without evidence of hydronephrosis. Sonographic Valero sign is not reported. IMPRESSION: 1. Probable mild fatty infiltration liver.
[2017-04-17] MEDS: Pantoprazole 40 MG Tab.CR PO SCH (11:18)
--- NOTE | 2017-04-17 13:45 | PCM.PN ---
- General Info Date of Service: 04/17/17 Subjective Update: Patient states that his pain has been stable and comparable to yesterday. Denies any fevers or chills. Denies any nausea or vomiting. Denies any new joint pain. He tells me that the swelling in his right knee has come down a little bit but still significant. We did touch base with Dr. Naik, rheumatology in [place] and went over the case with him. As per the recommendations, this could possibly be a rheumatological etiology given the multiple joint pain. Also to note that his ESR is elevated more so after stopping the Solu-Medrol. Labs are still pending for infectious etiology. - Review of Systems General: Reports: Other (See history of present illness) - Patient Data Vitals - Most Recent: Last Vital Signs Temp 36.8 C 04/17/17 12:04 Pulse 83 04/17/17 04:00 Resp 18 04/17/17 12:04 BP 124/85 04/17/17 12:04 Pulse Ox 98 04/17/17 12:04 Weight - Most Recent: 92 kg I&O - Last 24 Hours: Intake & Output 04/16/17 04/17/17 04/17/17 22:59 06:59 14:59 Intake Total 2189 2106 1770 Output Total 300 1225 Balance 6211 274 7000 Lab Results Last 24 Hours: Laboratory Results - last 24 hr 04/16/17 04/17/17 04/17/17 Range/Units 01:30 07:28 07:28 WBC 22.06 H (4.0-11.0) K/uL RBC 4.74 (4.50-5.90) M/uL Hgb 13.4 (13.0-17.0) g/dL Hct 39.8 (38.0-50.0) % MCV 84.0 (80.0-98.0) fL MCH 28.3 (27.0-32.0) pg MCHC 33.7 (31.0-37.0) g/dL RDW Std Deviation 38.3 (28.0-62.0) fl RDW Coeff of Rosario 13 (11.0-15.0) % Plt Count 378 (150-400) K/uL MPV 9.30 (7.40-12.00) fL Add Manual Diff YES Neutrophils % (Manual) 70 (48.0-80.0) % Band Neutrophils % 7 % Lymphocytes % (Manual) 21 (16.0-40.0) % Monocytes % (Manual) 1 (0.0-15.0) % Eosinophils % (Manual) 1 (0.0-7.0) % Nucleated RBC % 0.0 /100WBC Absolute Seg Neuts 15.4 H (1.4-5.7) Band Neutrophils # 1.5 Lymphocytes # (Manual) 4.6 H (0.6-2.4) Monocytes # (Manual) 0.2 (0.0-0.8) Eosinophils # (Manual) 0.2 (0.0-0.7) Nucleated RBCs # 0 K/uL ESR 67 H (0-14) mm/hr Sodium 140 (136-146) mmol/L Potassium 3.7 (3.5-5.1) mmol/L Chloride 111 H (98-110) mmol/L Carbon Dioxide 21 (21-31) mmol/L BUN 13 (6.0-23.0) mg/dL Creatinine 0.7 (0.6-1.5) mg/dL Est Cr Clr Drug Dosing 151.20 mL/min Estimated GFR (MDRD) > 60.0 ml/min Glucose 112 H (60-110) mg/dL Calcium 9.2 (8.8-10.8) mg/dL Total Bilirubin 0.2 (0.1-1.5) mg/dL AST 66 H (5-40) IU/L ALT 159 H (8-54) IU/L Alkaline Phosphatase 106 (40-150) C-Reactive Protein 4.47 H (0.0-0.5) mg/dL Total Protein 7.1 (6.0-8.0) g/dL Albumin 3.3 L (3.5-5.0) g/dL Globulin 3.8 H (2.0-3.5) g/dL Albumin/Globulin Ratio 0.9 L (1.3-2.8) Vancomycin Trough (5-15) ug/mL Chlamydia/GC Source URINE C.trachomatis RNA (TMA) Negative (Negative) N.gonorrhoeae RNA (TMA) Negative (Negative) 04/17/17 Range/Units 07:28 WBC (4.0-11.0) K/uL RBC (4.50-5.90) M/uL Hgb (13.0-17.0) g/dL Hct (38.0-50.0) % MCV (80.0-98.0) fL MCH (27.0-32.0) pg MCHC (31.0-37.0) g/dL RDW Std Deviation (28.0-62.0) fl RDW Coeff of Rosario (11.0-15.0) % Plt Count (150-400) K/uL MPV (7.40-12.00) fL Add Manual Diff Neutrophils % (Manual) (48.0-80.0) % Band Neutrophils % % Lymphocytes % (Manual) (16.0-40.0) % Monocytes % (Manual) (0.0-15.0) % Eosinophils % (Manual) (0.0-7.0) % Nucleated RBC % /100WBC Absolute Seg Neuts (1.4-5.7) Band Neutrophils # Lymphocytes # (Manual) (0.6-2.4) Monocytes # (Manual) (0.0-0.8) Eosinophils # (Manual) (0.0-0.7) Nucleated RBCs # K/uL ESR (0-14) mm/hr Sodium (136-146) mmol/L Potassium (3.5-5.1) mmol/L Chloride (98-110) mmol/L Carbon Dioxide (21-31) mmol/L BUN (6.0-23.0) mg/dL Creatinine (0.6-1.5) mg/dL Est Cr Clr Drug Dosing mL/min Estimated GFR (MDRD) ml/min Glucose (60-110) mg/dL Calcium (8.8-10.8) mg/dL Total Bilirubin (0.1-1.5) mg/dL AST (5-40) IU/L ALT (8-54) IU/L Alkaline Phosphatase (40-150) C-Reactive Protein (0.0-0.5) mg/dL Total Protein (6.0-8.0) g/dL Albumin (3.5-5.0) g/dL Globulin (2.0-3.5) g/dL Albumin/Globulin Ratio (1.3-2.8) Vancomycin Trough 7.6 (5-15) ug/mL Chlamydia/GC Source C.trachomatis RNA (TMA) (Negative) N.gonorrhoeae RNA (TMA) (Negative) Med Orders - Current: Current Medications Bisacodyl (Dulcolax) 5 mg PO DAILY PRN PRN Reason: Constipation Docusate Sodium (Colace) 100 mg PO BID PRN PRN Reason: Constipation Doxycycline Hyclate (Vibramycin) 100 mg PO Q12HR [facility] Last Admin: 04/17/17 08:46 Dose: 100 mg Sodium Chloride (Normal Saline) 1,000 mls @ 125 mls/hr IV ASDIRECTED [facility] Last Admin: 04/17/17 08:07 Dose: 125 mls/hr Ceftriaxone Sodium/Dextrose 1 (gm/ Premix) 50 mls @ 100 mls/hr IV Q24H [facility] Last Admin: 04/16/17 15:43 Dose: 100 mls/hr Vancomycin HCl 1.5 gm/ Sodium (Chloride) 500 mls @ 333.333 mls/hr IV Q8H [facility] Last Admin: 04/17/17 09:01 Dose: 333.333 mls/hr Ibuprofen (Motrin) 400 mg PO TID [facility] Last Admin: 04/17/17 13:27 Dose: 400 mg Ketorolac Tromethamine (Toradol) 30 mg IV Q6H PRN PRN Reason: Pain (moderate 4-6) Morphine Sulfate (Morphine) 5 mg IVPUSH Q2H PRN PRN Reason: Pain (severe 7-10) Pantoprazole Sodium (Protonix) 40 mg PO DAILY [facility] Last Admin: 04/17/17 11:18 Dose: 40 mg Prednisone (Prednisone) 60 mg PO DAILY [facility] Last Admin: 04/17/17 11:18 Dose: 60 mg Sodium Chloride (Saline Flush) 10 ml FLUSH ASDIRECTED PRN PRN Reason: Keep Vein Open Sodium Chloride (Saline Flush) 2.5 ml FLUSH ASDIRECTED PRN PRN Reason: Keep Vein Open Temazepam (Restoril) 15 mg PO BEDTIME PRN PRN Reason: Sleep Tramadol HCl (Ultram) 50 mg PO Q8H PRN PRN Reason: Pain Last Admin: 04/16/17 10:30 Dose: 50 mg Discontinued Medications Acetaminophen (Tylenol Extra Strength) 1,000 mg PO ONETIME ONE Stop: 04/15/17 20:52 Last Admin: 04/15/17 20:59 Dose: 1,000 mg Sodium Chloride (Normal Saline) 1,000 mls @ 999 mls/hr IV STAT ONE Stop: 04/15/17 21:35 Last Admin: 04/15/17 21:00 Dose: 999 mls/hr Sodium Chloride (Normal Saline) 1,000 mls @ 999 mls/hr IV STAT ONE Stop: 04/15/17 23:45 Last Admin: 04/15/17 22:59 Dose: 999 mls/hr Cefepime HCl 1 gm/ Premix 50 mls @ 100 mls/hr IV Q8H [facility] Last Admin: 04/16/17 07:32 Dose: 100 mls/hr Vancomycin HCl 1.5 gm/ Sodium (Chloride) 500 mls @ 333.333 mls/hr IV ONETIME ONE Stop: 04/16/17 01:29 Last Admin: 04/16/17 01:07 Dose: 333.333 mls/hr Doxycycline Hyclate 100 mg/ (Sodium Chloride) 100 mls @ 100 mls/hr IV Q12H [facility] Last Admin: 04/16/17 02:51 Dose: 100 mls/hr Vancomycin HCl 1.25 gm/ Sodium (Chloride) 250 mls @ 166.667 mls/hr IV Q8H [facility] Last Admin: 04/17/17 08:47 Dose: Not Given Vancomycin HCl 1.5 gm/ Sodium (Chloride) 500 mls @ 333.333 mls/hr IV Q8H [facility] Last Admin: 04/17/17 08:47 Dose: Not Given Influenza Virus Vaccine (Pharmacy To Dose - Influenza Vaccine) 1 each IM ONETIME ONE Stop: 04/16/17 01:02 Influenza Virus Vaccine (Fluarix Quad [id number]) 60 mcg IM .ONCE ONE Stop: 04/16/17 10:01 Ketorolac Tromethamine (Toradol) 30 mg IVPUSH ONETIME ONE Stop: 04/15/17 20:36 Last Admin: 04/15/17 21:00 Dose: 30 mg Lidocaine HCl (Xylocaine 1%) 20 ml INJECT ONETIME ONE Stop: 04/15/17 22:17 Last Admin: 04/15/17 22:19 Dose: 20 ml Lidocaine HCl (Xylocaine 1%) Confirm Administered Dose 20 ml .ROUTE .STK-MED ONE Stop: 04/15/17 22:18 Last Admin: 04/15/17 22:42 Dose: Not Given Lorazepam (Ativan) 2 mg IVPUSH ONETIME ONE Stop: 04/15/17 22:46 Last Admin: 04/15/17 22:59 Dose: 2 mg Methylprednisolone Sodium Succinate (Solu-Medrol) 125 mg IVPUSH Q12H [facility] Last Admin: 04/16/17 11:10 Dose: 125 mg Vancomycin HCl (Pharmacy To Dose - Vancomycin) 1 dose .XX ASDIRECTED [facility] - Exam General: Alert, Oriented, Cooperative HEENT: Pupils Equal Neck: Supple Lungs: Clear to Auscultation, Normal Respiratory Effort Cardiovascular: Regular Rate, Regular Rhythm GI/Abdominal Exam: Normal Bowel Sounds, Soft, Non-Tender Extremities: Normal Capillary Refill, Other (Effusion over the right knee appears to have come down a little bit. No erythema. Still significant medial joint line tenderness. He is able to flex at the knee about the same as yesterday. Dorsiflexion, plantar flexion appears to be intact at the ankle bilaterally.) Skin: Warm, Dry, Intact Neurological: No New Focal Deficit - Problem List Review Problem List Initiated/Reviewed/Updated: Yes - My Orders Last 24 Hours: My Active Orders 04/16/17 14:45 cefTRIAXone [Rocephin in Dextrose,Iso-Osm 1 GM/50 ML] 1 gm Premix Bag 1 bag IV Q24H 04/16/17 14:54 HEPATITIS PANEL, ACUTE [REF] Routine 04/16/17 21:00 Doxycycline [Vibramycin] 100 mg PO Q12HR 04/17/17 11:00 Pantoprazole [ProTONIX] 40 mg PO DAILY predniSONE 60 mg PO DAILY - Plan Plan:: A: #1. Right knee pain of unknown etiology #2. Leukocytosis #3. Elevated ESR -increased #4. Elevated LFT's P: #1. Currently on Vancomycin, Rocephin, Doxycycline. #2. Motrin for pain control. Hasn't needed morphine or toradol which is ordered PRN. Will add tramadol PRN #3. Initial gram stain is negative, negative for crystals. #4. GENEVA, gonorrhea pending, HLA-B27 pending #5. Started on 60 mg prednisone daily #6. He will require a follow-up appointment as an outpatient with Dr. Naik, rheumatology #7. Right upper quadrant ultrasound, hepatitis panel ordered for his elevated LFTs #8. Anticipate discharge tomorrow.
[2017-04-17] MEDS: cefTRIAXone 1 GM in Premix Bag 1 BAG IV SCH (14:06)
[2017-04-17] MEDS ORDERED: Sodium Chloride 0.9% 10 ML Syringe FLUSH PRN (16:50)
[2017-04-17] MEDS ORDERED: Sodium Chloride 0.9% 2.5 ML Syringe FLUSH PRN (16:50)
[2017-04-18] MEDS: Vancomycin 1.5 GM in Sodium Chloride 0.9% 500 ML IV SCH ×2 (00:39→08:57)
[2017-04-18] MEDS: Ibuprofen 400 MG Tab PO SCH ×3 (05:08→21:13)
[2017-04-18] MEDS: Morphine 10 MG/ML Syringe IVPUSH PRN ×3 (05:50→14:16)
[2017-04-18 06:36] LABS: CHLORIDE,CL 108 mmol/L (98-110); SODIUM,NA 139 mmol/L (136-146)
[2017-04-18] MEDS: traMADol 50 MG Tab PO PRN (08:54)
[2017-04-18] MEDS: Doxycycline 100 MG Cap PO SCH (08:57)
[2017-04-18] MEDS: Pantoprazole 40 MG Tab.CR PO SCH (08:57)
[2017-04-18] MEDS ORDERED: methylPREDNISolone Sodium Succinate 125 MG/2 ML SDV IVPUSH SCH (09:00)
--- NOTE | 2017-04-18 09:24 | PCM.CONSN ---
<Lacey Nicholas - Last Filed: 04/18/17 10:27> - General Info Date of Service: 04/18/17 Functional Status: Reports: Pain Controlled (Pain increased this AM. One dose of Morphine given. ), Tolerating Diet, Ambulating, Urinating - Review of Systems General: Reports: No Symptoms Pulmonary: Reports: No Symptoms Cardiovascular: Reports: No Symptoms Musculoskeletal: Reports: No Symptoms, Hand Pain, Leg Pain, Joint Pain, Joint Swelling Neurological: Reports: No Symptoms Psychiatric: Reports: No Symptoms - Patient Data Vitals - Most Recent: Last Vital Signs Temp 36.4 C 04/18/17 04:00 Pulse 80 04/18/17 04:00 Resp 16 04/18/17 04:00 BP 125/99 H 04/18/17 04:00 Pulse Ox 98 04/18/17 04:00 Weight - Most Recent: 92 kg I&O - Last 24 Hours: Intake & Output 04/17/17 04/18/17 04/18/17 22:59 06:59 14:59 Intake Total 1690 1250 Output Total 1450 2875 Balance 240 -1625 Lab Results Last 24 Hours: Laboratory Results - last 24 hr 04/16/17 04/18/17 04/18/17 Range/Units 01:30 05:37 05:37 WBC 18.93 H (4.0-11.0) K/uL RBC 5.02 (4.50-5.90) M/uL Hgb 14.1 (13.0-17.0) g/dL Hct 42.0 (38.0-50.0) % MCV 83.7 (80.0-98.0) fL MCH 28.1 (27.0-32.0) pg MCHC 33.6 (31.0-37.0) g/dL RDW Std Deviation 38.1 (28.0-62.0) fl RDW Coeff of Rosario 13 (11.0-15.0) % Plt Count 407 H (150-400) K/uL MPV 9.50 (7.40-12.00) fL Add Manual Diff YES Neutrophils % (Manual) 79 (48.0-80.0) % Lymphocytes % (Manual) 17 (16.0-40.0) % Monocytes % (Manual) 4 (0.0-15.0) % Nucleated RBC % 0.0 /100WBC Absolute Seg Neuts 15.0 H (1.4-5.7) Lymphocytes # (Manual) 3.2 H (0.6-2.4) Monocytes # (Manual) 0.8 (0.0-0.8) Nucleated RBCs # 0 K/uL ESR (0-14) mm/hr Sodium 139 (136-146) mmol/L Potassium 3.9 (3.5-5.1) mmol/L Chloride 108 (98-110) mmol/L Carbon Dioxide 20 L (21-31) mmol/L BUN 18 (6.0-23.0) mg/dL Creatinine 0.7 (0.6-1.5) mg/dL Est Cr Clr Drug Dosing 151.20 mL/min Estimated GFR (MDRD) > 60.0 ml/min Glucose 91 (60-110) mg/dL Calcium 8.8 (8.8-10.8) mg/dL Iron (50-170) ug/dL TIBC (273-456) ug/dL % Saturation (20-55) % Total Bilirubin 0.2 (0.1-1.5) mg/dL AST 110 H (5-40) IU/L ALT 313 H (8-54) IU/L Alkaline Phosphatase 109 (40-150) Total Protein 7.0 (6.0-8.0) g/dL Albumin 3.5 (3.5-5.0) g/dL Globulin 3.5 (2.0-3.5) g/dL Albumin/Globulin Ratio 1.0 L (1.3-2.8) Chlamydia/GC Source URINE C.trachomatis RNA (TMA) Negative (Negative) N.gonorrhoeae RNA (TMA) Negative (Negative) 04/18/17 04/18/17 Range/Units 05:37 08:23 WBC (4.0-11.0) K/uL RBC (4.50-5.90) M/uL Hgb (13.0-17.0) g/dL Hct (38.0-50.0) % MCV (80.0-98.0) fL MCH (27.0-32.0) pg MCHC (31.0-37.0) g/dL RDW Std Deviation (28.0-62.0) fl RDW Coeff of Rosario (11.0-15.0) % Plt Count (150-400) K/uL MPV (7.40-12.00) fL Add Manual Diff Neutrophils % (Manual) (48.0-80.0) % Lymphocytes % (Manual) (16.0-40.0) % Monocytes % (Manual) (0.0-15.0) % Nucleated RBC % /100WBC Absolute Seg Neuts (1.4-5.7) Lymphocytes # (Manual) (0.6-2.4) Monocytes # (Manual) (0.0-0.8) Nucleated RBCs # K/uL ESR 66 H (0-14) mm/hr Sodium (136-146) mmol/L Potassium (3.5-5.1) mmol/L Chloride (98-110) mmol/L Carbon Dioxide (21-31) mmol/L BUN (6.0-23.0) mg/dL Creatinine (0.6-1.5) mg/dL Est Cr Clr Drug Dosing mL/min Estimated GFR (MDRD) ml/min Glucose (60-110) mg/dL Calcium (8.8-10.8) mg/dL Iron 40 L (50-170) ug/dL TIBC 310 (273-456) ug/dL % Saturation 12.90 L (20-55) % Total Bilirubin (0.1-1.5) mg/dL AST (5-40) IU/L ALT (8-54) IU/L Alkaline Phosphatase (40-150) Total Protein (6.0-8.0) g/dL Albumin (3.5-5.0) g/dL Globulin (2.0-3.5) g/dL Albumin/Globulin Ratio (1.3-2.8) Chlamydia/GC Source C.trachomatis RNA (TMA) (Negative) N.gonorrhoeae RNA (TMA) (Negative) Med Orders - Current: Current Medications Bisacodyl (Dulcolax) 5 mg PO DAILY PRN PRN Reason: Constipation Docusate Sodium (Colace) 100 mg PO BID PRN PRN Reason: Constipation Doxycycline Hyclate (Vibramycin) 100 mg PO Q12HR [facility] Last Admin: 04/18/17 08:57 Dose: 100 mg Ceftriaxone Sodium/Dextrose 1 (gm/ Premix) 50 mls @ 100 mls/hr IV Q24H [facility] Last Admin: 04/17/17 14:06 Dose: 100 mls/hr Vancomycin HCl 1.5 gm/ Sodium (Chloride) 500 mls @ 333.333 mls/hr IV Q8H [facility] Last Admin: 04/18/17 08:57 Dose: 333.333 mls/hr Ibuprofen (Motrin) 400 mg PO TID [facility] Last Admin: 04/18/17 05:08 Dose: Not Given Ketorolac Tromethamine (Toradol) 30 mg IV Q6H PRN PRN Reason: Pain (moderate 4-6) Last Admin: 04/18/17 04:25 Dose: 30 mg Methylprednisolone Sodium Succinate (Solu-Medrol) 125 mg IVPUSH Q12H [facility] Morphine Sulfate (Morphine) 5 mg IVPUSH Q2H PRN PRN Reason: Pain (severe 7-10) Last Admin: 04/18/17 05:50 Dose: 5 mg Pantoprazole Sodium (Protonix) 40 mg PO DAILY [facility] Last Admin: 04/18/17 08:57 Dose: 40 mg Sodium Chloride (Saline Flush) 10 ml FLUSH ASDIRECTED PRN PRN Reason: Keep Vein Open Sodium Chloride (Saline Flush) 2.5 ml FLUSH ASDIRECTED PRN PRN Reason: Keep Vein Open Sodium Chloride (Saline Flush) 10 ml FLUSH ASDIRECTED PRN PRN Reason: Keep Vein Open Sodium Chloride (Saline Flush) 2.5 ml FLUSH ASDIRECTED PRN PRN Reason: Keep Vein Open Temazepam (Restoril) 15 mg PO BEDTIME PRN PRN Reason: Sleep Tramadol HCl (Ultram) 50 mg PO Q8H PRN PRN Reason: Pain Last Admin: 04/18/17 08:54 Dose: 50 mg Discontinued Medications Acetaminophen (Tylenol Extra Strength) 1,000 mg PO ONETIME ONE Stop: 04/15/17 20:52 Last Admin: 04/15/17 20:59 Dose: 1,000 mg Sodium Chloride (Normal Saline) 1,000 mls @ 999 mls/hr IV STAT ONE Stop: 04/15/17 21:35 Last Admin: 04/15/17 21:00 Dose: 999 mls/hr Sodium Chloride (Normal Saline) 1,000 mls @ 999 mls/hr IV STAT ONE Stop: 04/15/17 23:45 Last Admin: 04/15/17 22:59 Dose: 999 mls/hr Cefepime HCl 1 gm/ Premix 50 mls @ 100 mls/hr IV Q8H [facility] Last Admin: 04/16/17 07:32 Dose: 100 mls/hr Vancomycin HCl 1.5 gm/ Sodium (Chloride) 500 mls @ 333.333 mls/hr IV ONETIME ONE Stop: 04/16/17 01:29 Last Admin: 04/16/17 01:07 Dose: 333.333 mls/hr Sodium Chloride (Normal Saline) 1,000 mls @ 125 mls/hr IV ASDIRECTED [facility] Last Admin: 04/17/17 08:07 Dose: 125 mls/hr Doxycycline Hyclate 100 mg/ (Sodium Chloride) 100 mls @ 100 mls/hr IV Q12H [facility] Last Admin: 04/16/17 02:51 Dose: 100 mls/hr Vancomycin HCl 1.25 gm/ Sodium (Chloride) 250 mls @ 166.667 mls/hr IV Q8H [facility] Last Admin: 04/17/17 08:47 Dose: Not Given Vancomycin HCl 1.5 gm/ Sodium (Chloride) 500 mls @ 333.333 mls/hr IV Q8H [facility] Last Admin: 04/17/17 08:47 Dose: Not Given Influenza Virus Vaccine (Pharmacy To Dose - Influenza Vaccine) 1 each IM ONETIME ONE Stop: 04/16/17 01:02 Influenza Virus Vaccine (Fluarix Quad [id number]) 60 mcg IM .ONCE ONE Stop: 04/16/17 10:01 Ketorolac Tromethamine (Toradol) 30 mg IVPUSH ONETIME ONE Stop: 04/15/17 20:36 Last Admin: 04/15/17 21:00 Dose: 30 mg Lidocaine HCl (Xylocaine 1%) 20 ml INJECT ONETIME ONE Stop: 04/15/17 22:17 Last Admin: 04/15/17 22:19 Dose: 20 ml Lidocaine HCl (Xylocaine 1%) Confirm Administered Dose 20 ml .ROUTE .STK-MED ONE Stop: 04/15/17 22:18 Last Admin: 04/15/17 22:42 Dose: Not Given Lorazepam (Ativan) 2 mg IVPUSH ONETIME ONE Stop: 04/15/17 22:46 Last Admin: 04/15/17 22:59 Dose: 2 mg Methylprednisolone Sodium Succinate (Solu-Medrol) 125 mg IVPUSH Q12H [facility] Last Admin: 04/16/17 11:10 Dose: 125 mg Prednisone (Prednisone) 60 mg PO DAILY [facility] Last Admin: 04/17/17 11:18 Dose: 60 mg Vancomycin HCl (Pharmacy To Dose - Vancomycin) 1 dose .XX ASDIRECTED [facility] - Exam General: Alert, Oriented HEENT: Pupils Equal, Pupils Reactive Neck: Trachea Midline Lungs: Normal Respiratory Effort Cardiovascular: Regular Rate Extremities: Joint Swelling (Right knee, left wrist.), Limited Range of Motion ( Right knee, left wrist.), Other (Distal sensation intact. Pulses 2+ bilaterally. ) Neurological: No New Focal Deficit Psy/Mental Status: Alert, Normal Affect, Normal Mood Consult PN Assessment/Plan Procedures: Procedures COMPLETE CBC W/AUTO DIFF WBC (04/06/17) COMPREHEN METABOLIC PANEL (04/06/17) EMERGENCY DEPT VISIT (04/06/17) ROUTINE VENIPUNCTURE (04/06/17) THER/PROPH/DIAG INJ SC/IM (04/06/17) X-RAY EXAM OF HAND (04/06/17) Problem List Initiated/Reviewed/Updated: Yes My Orders Last 24 Hours: Assessment: WBC 18.93. CRP ordered. Plan: Continue pain management. Continue abx. G/C negative. Continue Solu-Medrol. Stable from ortho standpoint. Will f/u with volunteer assistant. <Kayleigh Ann R - Last Filed: 04/18/17 18:05> - Patient Data Vitals - Most Recent: Last Vital Signs Temp 97.5 F 04/18/17 16:00 Pulse 87 04/18/17 16:00 Resp 18 04/18/17 16:00 BP 129/89 04/18/17 16:00 Pulse Ox 95 04/18/17 16:00 I&O - Last 24 Hours: Intake & Output 04/18/17 04/18/17 04/18/17 06:59 14:59 22:59 Intake Total 3826 278 3899 Output Total 2875 2025 Balance -1625 500 -655 Lab Results Last 24 Hours: Laboratory Results - last 24 hr 04/16/17 04/18/17 04/18/17 Range/Units 05:50 05:37 05:37 WBC 18.93 H (4.0-11.0) K/uL RBC 5.02 (4.50-5.90) M/uL Hgb 14.1 (13.0-17.0) g/dL Hct 42.0 (38.0-50.0) % MCV 83.7 (80.0-98.0) fL MCH 28.1 (27.0-32.0) pg MCHC 33.6 (31.0-37.0) g/dL RDW Std Deviation 38.1 (28.0-62.0) fl RDW Coeff of Rosario 13 (11.0-15.0) % Plt Count 407 H (150-400) K/uL MPV 9.50 (7.40-12.00) fL Add Manual Diff YES Neutrophils % (Manual) 79 (48.0-80.0) % Lymphocytes % (Manual) 17 (16.0-40.0) % Monocytes % (Manual) 4 (0.0-15.0) % Nucleated RBC % 0.0 /100WBC Absolute Seg Neuts 15.0 H (1.4-5.7) Lymphocytes # (Manual) 3.2 H (0.6-2.4) Monocytes # (Manual) 0.8 (0.0-0.8) Nucleated RBCs # 0 K/uL ESR (0-14) mm/hr Sodium 139 (136-146) mmol/L Potassium 3.9 (3.5-5.1) mmol/L Chloride 108 (98-110) mmol/L Carbon Dioxide 20 L (21-31) mmol/L BUN 18 (6.0-23.0) mg/dL Creatinine 0.7 (0.6-1.5) mg/dL Est Cr Clr Drug Dosing 151.20 mL/min Estimated GFR (MDRD) > 60.0 ml/min Glucose 91 (60-110) mg/dL Calcium 8.8 (8.8-10.8) mg/dL Iron (50-170) ug/dL TIBC (273-456) ug/dL % Saturation (20-55) % Total Bilirubin 0.2 (0.1-1.5) mg/dL AST 110 H (5-40) IU/L ALT 313 H (8-54) IU/L Alkaline Phosphatase 109 (40-150) C-Reactive Protein (0.0-0.5) mg/dL Total Protein 7.0 (6.0-8.0) g/dL Albumin 3.5 (3.5-5.0) g/dL Globulin 3.5 (2.0-3.5) g/dL Albumin/Globulin Ratio 1.0 L (1.3-2.8) HLA-B27 Positive 04/18/17 04/18/17 04/18/17 Range/Units 05:37 08:23 08:23 WBC (4.0-11.0) K/uL RBC (4.50-5.90) M/uL Hgb (13.0-17.0) g/dL Hct (38.0-50.0) % MCV (80.0-98.0) fL MCH (27.0-32.0) pg MCHC (31.0-37.0) g/dL RDW Std Deviation (28.0-62.0) fl RDW Coeff of Rosario (11.0-15.0) % Plt Count (150-400) K/uL MPV (7.40-12.00) fL Add Manual Diff Neutrophils % (Manual) (48.0-80.0) % Lymphocytes % (Manual) (16.0-40.0) % Monocytes % (Manual) (0.0-15.0) % Nucleated RBC % /100WBC Absolute Seg Neuts (1.4-5.7) Lymphocytes # (Manual) (0.6-2.4) Monocytes # (Manual) (0.0-0.8) Nucleated RBCs # K/uL ESR 66 H (0-14) mm/hr Sodium (136-146) mmol/L Potassium (3.5-5.1) mmol/L Chloride (98-110) mmol/L Carbon Dioxide (21-31) mmol/L BUN (6.0-23.0) mg/dL Creatinine (0.6-1.5) mg/dL Est Cr Clr Drug Dosing mL/min Estimated GFR (MDRD) ml/min Glucose (60-110) mg/dL Calcium (8.8-10.8) mg/dL Iron 40 L (50-170) ug/dL TIBC 310 (273-456) ug/dL % Saturation 12.90 L (20-55) % Total Bilirubin (0.1-1.5) mg/dL AST (5-40) IU/L ALT (8-54) IU/L Alkaline Phosphatase (40-150) C-Reactive Protein 1.93 H (0.0-0.5) mg/dL Total Protein (6.0-8.0) g/dL Albumin (3.5-5.0) g/dL Globulin (2.0-3.5) g/dL Albumin/Globulin Ratio (1.3-2.8) HLA-B27 Med Orders - Current: Current Medications Bisacodyl (Dulcolax) 5 mg PO DAILY PRN PRN Reason: Constipation Docusate Sodium (Colace) 100 mg PO BID PRN PRN Reason: Constipation Ibuprofen (Motrin) 400 mg PO TID [facility] Last Admin: 04/18/17 14:25 Dose: 400 mg Ketorolac Tromethamine (Toradol) 30 mg IV Q6H PRN PRN Reason: Pain (moderate 4-6) Last Admin: 04/18/17 04:25 Dose: 30 mg Morphine Sulfate (Morphine) 5 mg IVPUSH Q2H PRN PRN Reason: Pain (severe 7-10) Last Admin: 04/18/17 14:16 Dose: 5 mg Pantoprazole Sodium (Protonix) 40 mg PO DAILY [facility] Last Admin: 04/18/17 08:57 Dose: 40 mg Prednisone (Prednisone) 10 mg PO BID [facility] Sodium Chloride (Saline Flush) 10 ml FLUSH ASDIRECTED PRN PRN Reason: Keep Vein Open Sodium Chloride (Saline Flush) 2.5 ml FLUSH ASDIRECTED PRN PRN Reason: Keep Vein Open Sodium Chloride (Saline Flush) 10 ml FLUSH ASDIRECTED PRN PRN Reason: Keep Vein Open Sodium Chloride (Saline Flush) 2.5 ml FLUSH ASDIRECTED PRN PRN Reason: Keep Vein Open Temazepam (Restoril) 15 mg PO BEDTIME PRN PRN Reason: Sleep Tramadol HCl (Ultram) 50 mg PO Q8H PRN PRN Reason: Pain Last Admin: 04/18/17 08:54 Dose: 50 mg Discontinued Medications Acetaminophen (Tylenol Extra Strength) 1,000 mg PO ONETIME ONE Stop: 04/15/17 20:52 Last Admin: 04/15/17 20:59 Dose: 1,000 mg Doxycycline Hyclate (Vibramycin) 100 mg PO Q12HR [facility] Last Admin: 04/18/17 08:57 Dose: 100 mg Sodium Chloride (Normal Saline) 1,000 mls @ 999 mls/hr IV STAT ONE Stop: 04/15/17 21:35 Last Admin: 04/15/17 21:00 Dose: 999 mls/hr Sodium Chloride (Normal Saline) 1,000 mls @ 999 mls/hr IV STAT ONE Stop: 04/15/17 23:45 Last Admin: 04/15/17 22:59 Dose: 999 mls/hr Cefepime HCl 1 gm/ Premix 50 mls @ 100 mls/hr IV Q8H [facility] Last Admin: 04/16/17 07:32 Dose: 100 mls/hr Vancomycin HCl 1.5 gm/ Sodium (Chloride) 500 mls @ 333.333 mls/hr IV ONETIME ONE Stop: 04/16/17 01:29 Last Admin: 04/16/17 01:07 Dose: 333.333 mls/hr Sodium Chloride (Normal Saline) 1,000 mls @ 125 mls/hr IV ASDIRECTED [facility] Last Admin: 04/17/17 08:07 Dose: 125 mls/hr Doxycycline Hyclate 100 mg/ (Sodium Chloride) 100 mls @ 100 mls/hr IV Q12H [facility] Last Admin: 04/16/17 02:51 Dose: 100 mls/hr Vancomycin HCl 1.25 gm/ Sodium (Chloride) 250 mls @ 166.667 mls/hr IV Q8H [facility] Last Admin: 04/17/17 08:47 Dose: Not Given Ceftriaxone Sodium/Dextrose 1 (gm/ Premix) 50 mls @ 100 mls/hr IV Q24H [facility] Last Admin: 04/17/17 14:06 Dose: 100 mls/hr Vancomycin HCl 1.5 gm/ Sodium (Chloride) 500 mls @ 333.333 mls/hr IV Q8H [facility] Last Admin: 04/17/17 08:47 Dose: Not Given Vancomycin HCl 1.5 gm/ Sodium (Chloride) 500 mls @ 333.333 mls/hr IV Q8H [facility] Last Admin: 04/18/17 08:57 Dose: 333.333 mls/hr Piperacillin Sod/Tazobactam (Sod 3.375 gm/ Sodium Chloride) 50 mls @ 100 mls/ hr IV Q6H [facility] Last Admin: 04/18/17 14:24 Dose: Not Given Influenza Virus Vaccine (Pharmacy To Dose - Influenza Vaccine) 1 each IM ONETIME ONE Stop: 04/16/17 01:02 Influenza Virus Vaccine (Fluarix Quad [id number]) 60 mcg IM .ONCE ONE Stop: 04/16/17 10:01 Ketorolac Tromethamine (Toradol) 30 mg IVPUSH ONETIME ONE Stop: 04/15/17 20:36 Last Admin: 04/15/17 21:00 Dose: 30 mg Lidocaine HCl (Xylocaine 1%) 20 ml INJECT ONETIME ONE Stop: 04/15/17 22:17 Last Admin: 04/15/17 22:19 Dose: 20 ml Lidocaine HCl (Xylocaine 1%) Confirm Administered Dose 20 ml .ROUTE .STK-MED ONE Stop: 04/15/17 22:18 Last Admin: 04/15/17 22:42 Dose: Not Given Lorazepam (Ativan) 2 mg IVPUSH ONETIME ONE Stop: 04/15/17 22:46 Last Admin: 04/15/17 22:59 Dose: 2 mg Methylprednisolone Sodium Succinate (Solu-Medrol) 125 mg IVPUSH Q12H [facility] Last Admin: 04/16/17 11:10 Dose: 125 mg Methylprednisolone Sodium Succinate (Solu-Medrol) 125 mg IVPUSH Q12H [facility] Last Admin: 04/18/17 09:34 Dose: 125 mg Prednisone (Prednisone) 60 mg PO DAILY [facility] Last Admin: 04/17/17 11:18 Dose: 60 mg Vancomycin HCl (Pharmacy To Dose - Vancomycin) 1 dose .XX ASDIRECTED [facility] Consult PN Assessment/Plan Procedures: Procedures COMPLETE CBC W/AUTO DIFF WBC (04/06/17) COMPREHEN METABOLIC PANEL (04/06/17) EMERGENCY DEPT VISIT (04/06/17) ROUTINE VENIPUNCTURE (04/06/17) THER/PROPH/DIAG INJ SC/IM (04/06/17) X-RAY EXAM OF HAND (04/06/17) My Orders Last 24 Hours: 1800 Patient seen and examined. Agree with above note. Patient states joint pain has increased today since stopping IV steroids. C/o mild discomfort in L shoulder, L wrist, and R knee. No other complaints. Denies fevers/chills. Knee aspirate culture negative, GC negative. VSS, afeb Exam of L shoulder shows no erythema or warmth. Full ROM but has pain with FF > 90 degrees. No pain with rotation. Exam of L wrist shows mild swelling extending into dorsum of hand and MCP joints. Able to make fist, but c/o tightness. Wrist extension ~45 degrees, flexion ~60 degrees. AIN/PIN/uln motor intact. Rad/uln/med sensation intact. Rad pulse 2+. Exam of R knee shows continued effusion, unchanged from yesterday. ROM 0-100 degrees with minimal pain, c/o increased pain with further flexion. Diffuse TTP. AT/EHL/gastroc 5/5. Sensation intact. DP 2+. WBC, ESR, CRP decreased today. HLA-B27 +. 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 discontinue IV abx--patient clinically does not have s/s of septic arthritis. Discontinue today and observe overnight. 2. Steroid treatment options per primary--may need to discuss with volunteer assistant as patient does have f/u appointment with Dr. Naik next week 3. will order GENEVA and CCP labs to complete rheumatoid work-up 4. no ortho intervention recommended at this point. Will continue to follow tomorrow to see how he does off abx. Plan repeat CRP, CBC, ESR in am.
--- NOTE | 2017-04-18 13:30 | PCM.PN ---
- General Info Date of Service: 04/18/17 Subjective Update: he is eating well. He notes pain in the right midfoot; right knee , left hand/wrist and left shoulder girdle - Patient Data Vitals - Most Recent: Last Vital Signs Temp 96.5 F 04/18/17 12:00 Pulse 87 04/18/17 12:00 Resp 18 04/18/17 12:00 BP 130/89 04/18/17 12:00 Pulse Ox 97 04/18/17 12:00 Weight - Most Recent: 92 kg I&O - Last 24 Hours: Intake & Output 04/17/17 04/18/17 04/18/17 22:59 06:59 14:59 Intake Total 1690 1250 500 Output Total 1450 2875 Balance 240 -1625 500 Lab Results Last 24 Hours: Laboratory Results - last 24 hr 04/18/17 04/18/17 04/18/17 Range/Units 05:37 05:37 05:37 WBC 18.93 H (4.0-11.0) K/uL RBC 5.02 (4.50-5.90) M/uL Hgb 14.1 (13.0-17.0) g/dL Hct 42.0 (38.0-50.0) % MCV 83.7 (80.0-98.0) fL MCH 28.1 (27.0-32.0) pg MCHC 33.6 (31.0-37.0) g/dL RDW Std Deviation 38.1 (28.0-62.0) fl RDW Coeff of Rosario 13 (11.0-15.0) % Plt Count 407 H (150-400) K/uL MPV 9.50 (7.40-12.00) fL Add Manual Diff YES Neutrophils % (Manual) 79 (48.0-80.0) % Lymphocytes % (Manual) 17 (16.0-40.0) % Monocytes % (Manual) 4 (0.0-15.0) % Nucleated RBC % 0.0 /100WBC Absolute Seg Neuts 15.0 H (1.4-5.7) Lymphocytes # (Manual) 3.2 H (0.6-2.4) Monocytes # (Manual) 0.8 (0.0-0.8) Nucleated RBCs # 0 K/uL ESR 66 H (0-14) mm/hr Sodium 139 (136-146) mmol/L Potassium 3.9 (3.5-5.1) mmol/L Chloride 108 (98-110) mmol/L Carbon Dioxide 20 L (21-31) mmol/L BUN 18 (6.0-23.0) mg/dL Creatinine 0.7 (0.6-1.5) mg/dL Est Cr Clr Drug Dosing 151.20 mL/min Estimated GFR (MDRD) > 60.0 ml/min Glucose 91 (60-110) mg/dL Calcium 8.8 (8.8-10.8) mg/dL Iron (50-170) ug/dL TIBC (273-456) ug/dL % Saturation (20-55) % Total Bilirubin 0.2 (0.1-1.5) mg/dL AST 110 H (5-40) IU/L ALT 313 H (8-54) IU/L Alkaline Phosphatase 109 (40-150) C-Reactive Protein (0.0-0.5) mg/dL Total Protein 7.0 (6.0-8.0) g/dL Albumin 3.5 (3.5-5.0) g/dL Globulin 3.5 (2.0-3.5) g/dL Albumin/Globulin Ratio 1.0 L (1.3-2.8) 04/18/17 04/18/17 Range/Units 08:23 08:23 WBC (4.0-11.0) K/uL RBC (4.50-5.90) M/uL Hgb (13.0-17.0) g/dL Hct (38.0-50.0) % MCV (80.0-98.0) fL MCH (27.0-32.0) pg MCHC (31.0-37.0) g/dL RDW Std Deviation (28.0-62.0) fl RDW Coeff of Rosario (11.0-15.0) % Plt Count (150-400) K/uL MPV (7.40-12.00) fL Add Manual Diff Neutrophils % (Manual) (48.0-80.0) % Lymphocytes % (Manual) (16.0-40.0) % Monocytes % (Manual) (0.0-15.0) % Nucleated RBC % /100WBC Absolute Seg Neuts (1.4-5.7) Lymphocytes # (Manual) (0.6-2.4) Monocytes # (Manual) (0.0-0.8) Nucleated RBCs # K/uL ESR (0-14) mm/hr Sodium (136-146) mmol/L Potassium (3.5-5.1) mmol/L Chloride (98-110) mmol/L Carbon Dioxide (21-31) mmol/L BUN (6.0-23.0) mg/dL Creatinine (0.6-1.5) mg/dL Est Cr Clr Drug Dosing mL/min Estimated GFR (MDRD) ml/min Glucose (60-110) mg/dL Calcium (8.8-10.8) mg/dL Iron 40 L (50-170) ug/dL TIBC 310 (273-456) ug/dL % Saturation 12.90 L (20-55) % Total Bilirubin (0.1-1.5) mg/dL AST (5-40) IU/L ALT (8-54) IU/L Alkaline Phosphatase (40-150) C-Reactive Protein 1.93 H (0.0-0.5) mg/dL Total Protein (6.0-8.0) g/dL Albumin (3.5-5.0) g/dL Globulin (2.0-3.5) g/dL Albumin/Globulin Ratio (1.3-2.8) Med Orders - Current: Current Medications Bisacodyl (Dulcolax) 5 mg PO DAILY PRN PRN Reason: Constipation Docusate Sodium (Colace) 100 mg PO BID PRN PRN Reason: Constipation Doxycycline Hyclate (Vibramycin) 100 mg PO Q12HR [facility] Last Admin: 04/18/17 08:57 Dose: 100 mg Ceftriaxone Sodium/Dextrose 1 (gm/ Premix) 50 mls @ 100 mls/hr IV Q24H [facility] Last Admin: 04/17/17 14:06 Dose: 100 mls/hr Vancomycin HCl 1.5 gm/ Sodium (Chloride) 500 mls @ 333.333 mls/hr IV Q8H [facility] Last Admin: 04/18/17 08:57 Dose: 333.333 mls/hr Piperacillin Sod/Tazobactam (Sod 3.375 gm/ Sodium Chloride) 50 mls @ 100 mls/ hr IV Q6H [facility] Ibuprofen (Motrin) 400 mg PO TID [facility] Last Admin: 04/18/17 05:08 Dose: Not Given Ketorolac Tromethamine (Toradol) 30 mg IV Q6H PRN PRN Reason: Pain (moderate 4-6) Last Admin: 04/18/17 04:25 Dose: 30 mg Morphine Sulfate (Morphine) 5 mg IVPUSH Q2H PRN PRN Reason: Pain (severe 7-10) Last Admin: 04/18/17 10:53 Dose: 5 mg Pantoprazole Sodium (Protonix) 40 mg PO DAILY [facility] Last Admin: 04/18/17 08:57 Dose: 40 mg Prednisone (Prednisone) 10 mg PO BID [facility] Sodium Chloride (Saline Flush) 10 ml FLUSH ASDIRECTED PRN PRN Reason: Keep Vein Open Sodium Chloride (Saline Flush) 2.5 ml FLUSH ASDIRECTED PRN PRN Reason: Keep Vein Open Sodium Chloride (Saline Flush) 10 ml FLUSH ASDIRECTED PRN PRN Reason: Keep Vein Open Sodium Chloride (Saline Flush) 2.5 ml FLUSH ASDIRECTED PRN PRN Reason: Keep Vein Open Temazepam (Restoril) 15 mg PO BEDTIME PRN PRN Reason: Sleep Tramadol HCl (Ultram) 50 mg PO Q8H PRN PRN Reason: Pain Last Admin: 04/18/17 08:54 Dose: 50 mg Discontinued Medications Acetaminophen (Tylenol Extra Strength) 1,000 mg PO ONETIME ONE Stop: 04/15/17 20:52 Last Admin: 04/15/17 20:59 Dose: 1,000 mg Sodium Chloride (Normal Saline) 1,000 mls @ 999 mls/hr IV STAT ONE Stop: 04/15/17 21:35 Last Admin: 04/15/17 21:00 Dose: 999 mls/hr Sodium Chloride (Normal Saline) 1,000 mls @ 999 mls/hr IV STAT ONE Stop: 04/15/17 23:45 Last Admin: 04/15/17 22:59 Dose: 999 mls/hr Cefepime HCl 1 gm/ Premix 50 mls @ 100 mls/hr IV Q8H [facility] Last Admin: 04/16/17 07:32 Dose: 100 mls/hr Vancomycin HCl 1.5 gm/ Sodium (Chloride) 500 mls @ 333.333 mls/hr IV ONETIME ONE Stop: 04/16/17 01:29 Last Admin: 04/16/17 01:07 Dose: 333.333 mls/hr Sodium Chloride (Normal Saline) 1,000 mls @ 125 mls/hr IV ASDIRECTED [facility] Last Admin: 04/17/17 08:07 Dose: 125 mls/hr Doxycycline Hyclate 100 mg/ (Sodium Chloride) 100 mls @ 100 mls/hr IV Q12H [facility] Last Admin: 04/16/17 02:51 Dose: 100 mls/hr Vancomycin HCl 1.25 gm/ Sodium (Chloride) 250 mls @ 166.667 mls/hr IV Q8H [facility] Last Admin: 04/17/17 08:47 Dose: Not Given Vancomycin HCl 1.5 gm/ Sodium (Chloride) 500 mls @ 333.333 mls/hr IV Q8H [facility] Last Admin: 04/17/17 08:47 Dose: Not Given Influenza Virus Vaccine (Pharmacy To Dose - Influenza Vaccine) 1 each IM ONETIME ONE Stop: 04/16/17 01:02 Influenza Virus Vaccine (Fluarix Quad [id number]) 60 mcg IM .ONCE ONE Stop: 04/16/17 10:01 Ketorolac Tromethamine (Toradol) 30 mg IVPUSH ONETIME ONE Stop: 04/15/17 20:36 Last Admin: 04/15/17 21:00 Dose: 30 mg Lidocaine HCl (Xylocaine 1%) 20 ml INJECT ONETIME ONE Stop: 04/15/17 22:17 Last Admin: 04/15/17 22:19 Dose: 20 ml Lidocaine HCl (Xylocaine 1%) Confirm Administered Dose 20 ml .ROUTE .STK-MED ONE Stop: 04/15/17 22:18 Last Admin: 04/15/17 22:42 Dose: Not Given Lorazepam (Ativan) 2 mg IVPUSH ONETIME ONE Stop: 04/15/17 22:46 Last Admin: 04/15/17 22:59 Dose: 2 mg Methylprednisolone Sodium Succinate (Solu-Medrol) 125 mg IVPUSH Q12H [facility] Last Admin: 04/16/17 11:10 Dose: 125 mg Methylprednisolone Sodium Succinate (Solu-Medrol) 125 mg IVPUSH Q12H [facility] Last Admin: 04/18/17 09:34 Dose: 125 mg Prednisone (Prednisone) 60 mg PO DAILY [facility] Last Admin: 04/17/17 11:18 Dose: 60 mg Vancomycin HCl (Pharmacy To Dose - Vancomycin) 1 dose .XX ASDIRECTED [facility] - Exam General: Alert, Oriented Lungs: Normal Respiratory Effort Physical Findings Comments:: alert no complaint of abdominal pain right knee: decreased swelling and warmth right foot: pain/tenderness over midfoot but no palpable increase in temperature or swelling or deformity Left shoulder girdle: no increase in temperature or swelling or deformity but subjective arthralgias and pain with movement left hand/wrist: some swelling, tenderness over the wrist with pain with motion. - Problem List & Annotations (1) Knee effusion, right SNOMED Code(s): 946133807 Code(s): M25.461 - EFFUSION, RIGHT KNEE Status: Acute Current Visit: Yes (2) Inflammatory polyarthritis SNOMED Code(s): 009373618 Code(s): M06.4 - INFLAMMATORY POLYARTHROPATHY Status: Acute Current Visit : Yes (3) Elevated liver enzymes SNOMED Code(s): 255038216 Code(s): R74.8 - ABNORMAL LEVELS OF OTHER SERUM ENZYMES Status: Acute Current Visit: Yes (4) Fatty liver SNOMED Code(s): 724085799 Code(s): K76.0 - FATTY (CHANGE OF) LIVER, NOT ELSEWHERE CLASSIFIED Status: Acute Current Visit: Yes - Problem List Review Problem List Initiated/Reviewed/Updated: Yes - My Orders Last 24 Hours: My Active Orders 04/17/17 16:50 Sodium Chloride 0.9% [Saline Flush] 10 ml FLUSH ASDIRECTED PRN Sodium Chloride 0.9% [Saline Flush] 2.5 ml FLUSH ASDIRECTED PRN 04/17/17 16:51 Saline Lock Insert [OM.PC] Stat 04/18/17 13:30 Piperacillin/Tazobactam [Piperacil-Tazobact] 3.375 gm Sodium Chloride 0.9% [ Normal Saline] 50 ml IV Q6H 04/18/17 16:30 VANCOMYCIN TROUGH [CHEM] Routine 04/18/17 21:00 predniSONE 10 mg PO BID - Plan Plan:: A: #1. Right knee pain of unknown etiology #2. Leukocytosis #3. Elevated ESR -increased #4. Elevated LFT's P: #1. Currently on Vancomycin, Rocephin, Doxycycline. #2. Motrin for pain control. Hasn't needed morphine or toradol which is ordered PRN. Will add tramadol PRN #3. Initial gram stain is negative, negative for crystals. #4. GENEVA, gonorrhea pending, HLA-B27 pending #5. Started on 60 mg prednisone daily #6. He will require a follow-up appointment as an outpatient with Dr. Naik, rheumatology #7. Right upper quadrant ultrasound, hepatitis panel ordered for his elevated LFTs #8. Anticipate discharge tomorrow. 04/18/2017 glucocorticosteroids have been known to lead to transient liver elevation in patients with fatty liver. I suspect that this is the likely etiology in this case. We will decrease the steroid dose to prednisone 10 mg po bid. I spoke with DR Naik, rheumatology today who advised decreasing the prednisone dose as the higher dose is not necessary for inflammatory arthritis. antibiotic coverage includes rocephin for the possibility of gonorrhea arthritis , doxycycline for the possibility of Lyme's disease, vancomycin for staph aureus and other gram positives and zosyn added for broad coverage including gram negative organisms. I suspect that this is a sterile inflammatory polyarthritis but because of the profound morbidity of delayed treatment of a potentially septic joint, we have elected to treat for a minimum of 3-4 days with antibiotics pending further culture results. He may be considered for discharge tomorrow or Sunday with follow up with Dr Naik planned for April 25. He will be discharged on prednisone 10 mg po bid. Armand Duron MD
[2017-04-18] MEDS ORDERED: Piperacillin/Tazobactam 3.375 GM in Sodium Chloride 0.9% 50 ML IV SCH (14:00)
--- NOTE | 2017-04-18 14:16 | PCM.SN ---
- Free Text/Narrative Note: I spoke with Dr Kayleigh Ann. She believes that the clinical picture is not suggestive of an infectious arthritis. As per our discussion we both agreed to stop all antibiotics with discharge home tomorrow planned if no resurgence of symptomatology.
[2017-04-18] MEDS: predniSONE 10 MG Tab PO SCH (21:13)
[2017-04-19 05:54] LABS: CHLORIDE,CL 106 mmol/L (98-110); SODIUM,NA 139 mmol/L (136-146)
[2017-04-19] MEDS: Ibuprofen 400 MG Tab PO SCH (06:04)
--- NOTE | 2017-04-19 08:38 | PCM.CONSN ---
- General Info Date of Service: 04/19/17 Functional Status: Reports: Pain Controlled, Tolerating Diet, Ambulating, Urinating - Review of Systems General: Reports: No Symptoms Pulmonary: Reports: No Symptoms Cardiovascular: Reports: No Symptoms Gastrointestinal: Reports: No Symptoms Genitourinary: Reports: No Symptoms Musculoskeletal: Reports: Hand Pain, Joint Pain (L wrist, R knee.), Joint Swelling (L wrist, R knee. ) Neurological: Reports: No Symptoms Psychiatric: Reports: No Symptoms - Patient Data Vitals - Most Recent: Last Vital Signs Temp 36.3 C 04/19/17 04:00 Pulse 80 04/19/17 04:00 Resp 20 04/19/17 04:00 BP 120/69 04/19/17 04:00 Pulse Ox 99 04/19/17 04:00 Weight - Most Recent: 92 kg I&O - Last 24 Hours: Intake & Output 04/18/17 04/19/17 04/19/17 22:59 06:59 14:59 Intake Total 1370 Output Total 2028 575 Balance -655 -575 Lab Results Last 24 Hours: Laboratory Results - last 24 hr 04/16/17 04/16/17 04/18/17 Range/Units 05:35 05:50 05:37 WBC (4.0-11.0) K/uL RBC (4.50-5.90) M/uL Hgb (13.0-17.0) g/dL Hct (38.0-50.0) % MCV (80.0-98.0) fL MCH (27.0-32.0) pg MCHC (31.0-37.0) g/dL RDW Std Deviation (28.0-62.0) fl RDW Coeff of Rosario (11.0-15.0) % Plt Count (150-400) K/uL MPV (7.40-12.00) fL Add Manual Diff Neutrophils % (Manual) (48.0-80.0) % Band Neutrophils % % Lymphocytes % (Manual) (16.0-40.0) % Monocytes % (Manual) (0.0-15.0) % Nucleated RBC % /100WBC Absolute Seg Neuts (1.4-5.7) Band Neutrophils # Lymphocytes # (Manual) (0.6-2.4) Monocytes # (Manual) (0.0-0.8) Nucleated RBCs # K/uL ESR 66 H (0-14) mm/hr Sodium (136-146) mmol/L Potassium (3.5-5.1) mmol/L Chloride (98-110) mmol/L Carbon Dioxide (21-31) mmol/L BUN (6.0-23.0) mg/dL Creatinine (0.6-1.5) mg/dL Est Cr Clr Drug Dosing mL/min Estimated GFR (MDRD) ml/min Glucose (60-110) mg/dL Calcium (8.8-10.8) mg/dL Iron (50-170) ug/dL TIBC (273-456) ug/dL % Saturation (20-55) % Ferritin (24-336) ng/mL Total Bilirubin (0.1-1.5) mg/dL AST (5-40) IU/L ALT (8-54) IU/L Alkaline Phosphatase (40-150) C-Reactive Protein (0.0-0.5) mg/dL Total Protein (6.0-8.0) g/dL Albumin (3.5-5.0) g/dL Globulin (2.0-3.5) g/dL Albumin/Globulin Ratio (1.3-2.8) Anti-Neutrophil Ab Negative (NEG) HLA-B27 Positive 04/18/17 04/18/17 04/18/17 Range/Units 08:23 08:23 08:23 WBC (4.0-11.0) K/uL RBC (4.50-5.90) M/uL Hgb (13.0-17.0) g/dL Hct (38.0-50.0) % MCV (80.0-98.0) fL MCH (27.0-32.0) pg MCHC (31.0-37.0) g/dL RDW Std Deviation (28.0-62.0) fl RDW Coeff of Rosario (11.0-15.0) % Plt Count (150-400) K/uL MPV (7.40-12.00) fL Add Manual Diff Neutrophils % (Manual) (48.0-80.0) % Band Neutrophils % % Lymphocytes % (Manual) (16.0-40.0) % Monocytes % (Manual) (0.0-15.0) % Nucleated RBC % /100WBC Absolute Seg Neuts (1.4-5.7) Band Neutrophils # Lymphocytes # (Manual) (0.6-2.4) Monocytes # (Manual) (0.0-0.8) Nucleated RBCs # K/uL ESR (0-14) mm/hr Sodium (136-146) mmol/L Potassium (3.5-5.1) mmol/L Chloride (98-110) mmol/L Carbon Dioxide (21-31) mmol/L BUN (6.0-23.0) mg/dL Creatinine (0.6-1.5) mg/dL Est Cr Clr Drug Dosing mL/min Estimated GFR (MDRD) ml/min Glucose (60-110) mg/dL Calcium (8.8-10.8) mg/dL Iron 40 L (50-170) ug/dL TIBC 310 (273-456) ug/dL % Saturation 12.90 L (20-55) % Ferritin 236 (24-336) ng/mL Total Bilirubin (0.1-1.5) mg/dL AST (5-40) IU/L ALT (8-54) IU/L Alkaline Phosphatase (40-150) C-Reactive Protein 1.93 H (0.0-0.5) mg/dL Total Protein (6.0-8.0) g/dL Albumin (3.5-5.0) g/dL Globulin (2.0-3.5) g/dL Albumin/Globulin Ratio (1.3-2.8) Anti-Neutrophil Ab (NEG) HLA-B27 04/19/17 04/19/17 04/19/17 Range/Units 05:06 05:06 05:06 WBC 20.73 H (4.0-11.0) K/uL RBC 5.20 (4.50-5.90) M/uL Hgb 14.8 (13.0-17.0) g/dL Hct 43.2 (38.0-50.0) % MCV 83.1 (80.0-98.0) fL MCH 28.5 (27.0-32.0) pg MCHC 34.3 (31.0-37.0) g/dL RDW Std Deviation 37.3 (28.0-62.0) fl RDW Coeff of Rosario 13 (11.0-15.0) % Plt Count 421 H (150-400) K/uL MPV 9.10 (7.40-12.00) fL Add Manual Diff YES Neutrophils % (Manual) 74 (48.0-80.0) % Band Neutrophils % 5 % Lymphocytes % (Manual) 15 L (16.0-40.0) % Monocytes % (Manual) 6 (0.0-15.0) % Nucleated RBC % 0.0 /100WBC Absolute Seg Neuts 15.3 H (1.4-5.7) Band Neutrophils # 1.0 Lymphocytes # (Manual) 3.1 H (0.6-2.4) Monocytes # (Manual) 1.2 H (0.0-0.8) Nucleated RBCs # 0 K/uL ESR 34 H (0-14) mm/hr Sodium 139 (136-146) mmol/L Potassium 3.9 (3.5-5.1) mmol/L Chloride 106 (98-110) mmol/L Carbon Dioxide 24 (21-31) mmol/L BUN 19 (6.0-23.0) mg/dL Creatinine 0.7 (0.6-1.5) mg/dL Est Cr Clr Drug Dosing 151.20 mL/min Estimated GFR (MDRD) > 60.0 ml/min Glucose 119 H (60-110) mg/dL Calcium 9.4 (8.8-10.8) mg/dL Iron (50-170) ug/dL TIBC (273-456) ug/dL % Saturation (20-55) % Ferritin (24-336) ng/mL Total Bilirubin 0.1 (0.1-1.5) mg/dL AST 42 H (5-40) IU/L ALT 248 H (8-54) IU/L Alkaline Phosphatase 106 (40-150) C-Reactive Protein (0.0-0.5) mg/dL Total Protein 7.4 (6.0-8.0) g/dL Albumin 3.4 L (3.5-5.0) g/dL Globulin 4.0 H (2.0-3.5) g/dL Albumin/Globulin Ratio 0.9 L (1.3-2.8) Anti-Neutrophil Ab (NEG) HLA-B27 11/16/17 Range/Units 05:06 WBC (4.0-11.0) K/uL RBC (4.50-5.90) M/uL Hgb (13.0-17.0) g/dL Hct (38.0-50.0) % MCV (80.0-98.0) fL MCH (27.0-32.0) pg MCHC (31.0-37.0) g/dL RDW Std Deviation (28.0-62.0) fl RDW Coeff of Rosario (11.0-15.0) % Plt Count (150-400) K/uL MPV (7.40-12.00) fL Add Manual Diff Neutrophils % (Manual) (48.0-80.0) % Band Neutrophils % % Lymphocytes % (Manual) (16.0-40.0) % Monocytes % (Manual) (0.0-15.0) % Nucleated RBC % /100WBC Absolute Seg Neuts (1.4-5.7) Band Neutrophils # Lymphocytes # (Manual) (0.6-2.4) Monocytes # (Manual) (0.0-0.8) Nucleated RBCs # K/uL ESR (0-14) mm/hr Sodium (136-146) mmol/L Potassium (3.5-5.1) mmol/L Chloride (98-110) mmol/L Carbon Dioxide (21-31) mmol/L BUN (6.0-23.0) mg/dL Creatinine (0.6-1.5) mg/dL Est Cr Clr Drug Dosing mL/min Estimated GFR (MDRD) ml/min Glucose (60-110) mg/dL Calcium (8.8-10.8) mg/dL Iron (50-170) ug/dL TIBC (273-456) ug/dL % Saturation (20-55) % Ferritin (24-336) ng/mL Total Bilirubin (0.1-1.5) mg/dL AST (5-40) IU/L ALT (8-54) IU/L Alkaline Phosphatase (40-150) C-Reactive Protein 2.86 H (0.0-0.5) mg/dL Total Protein (6.0-8.0) g/dL Albumin (3.5-5.0) g/dL Globulin (2.0-3.5) g/dL Albumin/Globulin Ratio (1.3-2.8) Anti-Neutrophil Ab (NEG) HLA-B27 Med Orders - Current: Current Medications Bisacodyl (Dulcolax) 5 mg PO DAILY PRN PRN Reason: Constipation Docusate Sodium (Colace) 100 mg PO BID PRN PRN Reason: Constipation Ibuprofen (Motrin) 400 mg PO TID [facility] [place] Last Admin: 04/19/17 06:04 Dose: 400 mg Ketorolac Tromethamine (Toradol) 30 mg IV Q6H PRN PRN Reason: Pain (moderate 4-6) Last Admin: 04/18/17 04:25 Dose: 30 mg Morphine Sulfate (Morphine) 5 mg IVPUSH Q2H PRN PRN Reason: Pain (severe 7-10) Last Admin: 04/18/17 14:16 Dose: 5 mg Pantoprazole Sodium (Protonix) 40 mg PO DAILY [facility] [place] Last Admin: 04/18/17 08:57 Dose: 40 mg Prednisone (Prednisone) 10 mg PO BID [facility] [place] Last Admin: 04/18/17 21:13 Dose: 10 mg Sodium Chloride (Saline Flush) 10 ml FLUSH ASDIRECTED PRN PRN Reason: Keep Vein Open Sodium Chloride (Saline Flush) 2.5 ml FLUSH ASDIRECTED PRN PRN Reason: Keep Vein Open Sodium Chloride (Saline Flush) 10 ml FLUSH ASDIRECTED PRN PRN Reason: Keep Vein Open Sodium Chloride (Saline Flush) 2.5 ml FLUSH ASDIRECTED PRN PRN Reason: Keep Vein Open Temazepam (Restoril) 15 mg PO BEDTIME PRN PRN Reason: Sleep Tramadol HCl (Ultram) 50 mg PO Q8H PRN PRN Reason: Pain Last Admin: 04/18/17 08:54 Dose: 50 mg Discontinued Medications Acetaminophen (Tylenol Extra Strength) 1,000 mg PO ONETIME ONE Stop: 04/15/17 20:52 Last Admin: 04/15/17 20:59 Dose: 1,000 mg Doxycycline Hyclate (Vibramycin) 100 mg PO Q12HR [facility] [place] Last Admin: 04/18/17 08:57 Dose: 100 mg Sodium Chloride (Normal Saline) 1,000 mls @ 999 mls/hr IV STAT ONE Stop: 04/15/17 21:35 Last Admin: 04/15/17 21:00 Dose: 999 mls/hr Sodium Chloride (Normal Saline) 1,000 mls @ 999 mls/hr IV STAT ONE Stop: 04/15/17 23:45 Last Admin: 04/15/17 22:59 Dose: 999 mls/hr Cefepime HCl 1 gm/ Premix 50 mls @ 100 mls/hr IV Q8H [facility] [place] Last Admin: 04/16/17 07:32 Dose: 100 mls/hr Vancomycin HCl 1.5 gm/ Sodium (Chloride) 500 mls @ 333.333 mls/hr IV ONETIME ONE Stop: 04/16/17 01:29 Last Admin: 04/16/17 01:07 Dose: 333.333 mls/hr Sodium Chloride (Normal Saline) 1,000 mls @ 125 mls/hr IV ASDIRECTED [facility] [place] Last Admin: 04/17/17 08:07 Dose: 125 mls/hr Doxycycline Hyclate 100 mg/ (Sodium Chloride) 100 mls @ 100 mls/hr IV Q12H [facility] [place] Last Admin: 04/16/17 02:51 Dose: 100 mls/hr Vancomycin HCl 1.25 gm/ Sodium (Chloride) 250 mls @ 166.667 mls/hr IV Q8H [facility] [place] Last Admin: 04/17/17 08:47 Dose: Not Given Ceftriaxone Sodium/Dextrose 1 (gm/ Premix) 50 mls @ 100 mls/hr IV Q24H [facility] [place] Last Admin: 04/17/17 14:06 Dose: 100 mls/hr Vancomycin HCl 1.5 gm/ Sodium (Chloride) 500 mls @ 333.333 mls/hr IV Q8H [facility] [place] Last Admin: 04/17/17 08:47 Dose: Not Given Vancomycin HCl 1.5 gm/ Sodium (Chloride) 500 mls @ 333.333 mls/hr IV Q8H [facility] [place] Last Admin: 04/18/17 08:57 Dose: 333.333 mls/hr Piperacillin Sod/Tazobactam (Sod 3.375 gm/ Sodium Chloride) 50 mls @ 100 mls/ hr IV Q6H [facility] [place] Last Admin: 04/18/17 14:24 Dose: Not Given Influenza Virus Vaccine (Pharmacy To Dose - Influenza Vaccine) 1 each IM ONETIME ONE Stop: 04/16/17 01:02 Influenza Virus Vaccine (Fluarix Quad 7341-0050) 60 mcg IM .ONCE ONE Stop: 04/16/17 10:01 Ketorolac Tromethamine (Toradol) 30 mg IVPUSH ONETIME ONE Stop: 04/15/17 20:36 Last Admin: 04/15/17 21:00 Dose: 30 mg Lidocaine HCl (Xylocaine 1%) 20 ml INJECT ONETIME ONE Stop: 04/15/17 22:17 Last Admin: 04/15/17 22:19 Dose: 20 ml Lidocaine HCl (Xylocaine 1%) Confirm Administered Dose 20 ml .ROUTE .STK-MED ONE Stop: 04/15/17 22:18 Last Admin: 04/15/17 22:42 Dose: Not Given Lorazepam (Ativan) 2 mg IVPUSH ONETIME ONE Stop: 04/15/17 22:46 Last Admin: 04/15/17 22:59 Dose: 2 mg Methylprednisolone Sodium Succinate (Solu-Medrol) 125 mg IVPUSH Q12H [facility] [place] Last Admin: 04/16/17 11:10 Dose: 125 mg Methylprednisolone Sodium Succinate (Solu-Medrol) 125 mg IVPUSH Q12H [facility] [place] Last Admin: 04/18/17 09:34 Dose: 125 mg Prednisone (Prednisone) 60 mg PO DAILY [facility] [place] Last Admin: 04/17/17 11:18 Dose: 60 mg Vancomycin HCl (Pharmacy To Dose - Vancomycin) 1 dose .XX ASDIRECTED [facility] [place] - Exam General: Alert, Oriented HEENT: Pupils Equal, Pupils Reactive Neck: Trachea Midline Lungs: Normal Respiratory Effort Cardiovascular: Regular Rate Extremities: Joint Swelling (R knee, L wrist.), Limited Range of Motion (R knee. 0-90 degrees. 20 degrees active ROM of L wrist.), Increased Warmth (R knee. ) Peripheral Pulses: 2+: Radial (L), Radial (R), Posterior Tibial (L), Posterior Tibial (R), Dorsalis Pedis (L), Dorsalis Pedis (R) Neurological: No New Focal Deficit Psy/Mental Status: Alert, Normal Affect, Normal Mood Consult PN Assessment/Plan Procedures: Procedures COMPLETE CBC W/AUTO DIFF WBC (04/06/17) COMPREHEN METABOLIC PANEL (04/06/17) EMERGENCY DEPT VISIT (04/06/17) ROUTINE VENIPUNCTURE (04/06/17) THER/PROPH/DIAG INJ SC/IM (04/06/17) X-RAY EXAM OF HAND (04/06/17) Problem List Initiated/Reviewed/Updated: Yes My Orders Last 24 Hours: Assesment: Patient awake in bed this AM. Pain controlled. Tolerating diet. Ambulating. WBC increased to 20.73. ESR 34. CRP 2.86. HLA-B27 positive. Plan: Abx discontinued per Dr. Duron and Dr. Ann. Continue steroid. D/C home on Prednisone. FU with waiter/waitress.
[2017-04-19] MEDS: Pantoprazole 40 MG Tab.CR PO SCH (09:31)
[2017-04-19] MEDS: predniSONE 10 MG Tab PO SCH (09:31)
--- NOTE | 2017-04-19 12:15 | PCM.DCSUM1 ---
<Gabriel Pollock - Last Filed: 04/19/17 12:09> Discharge Summary - Hospital Course Free Text/Narrative:: Admission date: April 16, 2017 Discharge date April 19, 2017 Admission diagnosis: #1. Right knee pain #2. Leukocytosis Discharge diagnosis: #1. Polyarthritis likely a rheumatology etiology #2. Leukocytosis persistent #3. Right knee pain improved #4. Left hand pain improved #5. HLA-B27 positive #6. Elevated ESR #7. Elevated LFTs Hospital course: This is a 27-year-old male with no significant past medical history that presented to the emergency department on 16 April secondary to right knee pain and inability to bear weight or walk. Patient was then admitted after getting up arthrocentesis that revealed a negative Gram stain. It was also negative for crystals. He was admitted for observation and IV antibiotics along with Solu-Medrol. At that point it was considered to be a possible septic joint. He was tested for Lyme's, gonorrhea given the polyarthritis. He was started on vancomycin, cefepime, doxycycline. Patient clinically improved in terms of pain, his labs however appeared to be persistent with white count in the high 19,000. He also had elevated ESR. A rheumatology consult was also placed, and after discussing the case, bleed secondary to be likely inflammatory arthritis and not a infectious etiology. At that point, antibiotics were then stopped. He was also advised by rheumatology that there is no added benefit of steroids beyond 20 mg of prednisone if this is indeed inflammatory arthritis. So he was stopped on the Solu-Medrol that he is getting IV. Laboratory examination also showed elevated LFTs. Right upper quadrant ultrasound was obtained which showed a fatty liver. It was believed that this could be held secondary to his the steroid use. The LFTs were downtrending prior to discharge once the Solu-Medrol was stopped. Hepatitis panel was also ordered which is pending. He is also negative for rheumatoid factor. Patient was also tested for possible hemachromatosis, iron studies however were normal. Other pending results include ceruloplasmin, hepatitis panel. He is ultimately discharged home given that his pain is under control. He was sent home on 10 mg by mouth twice a day of prednisone for the next week. Is also sent home on 40 mg of pantoprazole daily for GI prophylaxis. He has a follow-up appointment set up with his primary care provider, Dr. Pollock along with Dr. Naik, rheumatology in [place]. At the time of discharge she denied having any fever, chills, nausea or vomiting. - Discharge Data Discharge Date: 04/19/17 Discharge Disposition: Home, Self-Care 01 Condition: Good - Patient Summary/Data Consults: Consultations 04/16/17 14:25 Consult to Physician [CONS] Urgent - Patient Instructions Diet: Regular Diet as Tolerated Activity: As Tolerated Notify Provider of: Fever, Increased Pain, Swelling and Redness, Nausea and/or Vomiting - Discharge Plan Prescriptions/Med Rec: Pantoprazole Sodium [Protonix] 40 mg PO QAM 30 Days #30 tablet. Prednisone [IJD: Prednisone] 10 mg PO BID 7 Days #14 tab Home Medications: Home Meds Pantoprazole Sodium [Protonix] 40 mg PO QAM 30 Days #30 tablet. 04/19/17 [Rx] Prednisone [IJD: Prednisone] 10 mg PO BID 7 Days #14 tab 04/19/17 [Rx] Patient Handouts: Knee Effusion, [id number], Pantoprazole tablets, Prednisone tablets Referrals: Kelsey Naik MD [Consulting Physician] - 04/25/17 10:45 am (1 week ) Gabriel Pollock MD [Resident] - 04/30/17 2:30 pm - Discharge Summary/Plan Comment DC Time >30 min.: No Discharge Summary/Plan Comment: Admission date: April 16, 2017 Discharge date April 19, 2017 Admission diagnosis: #1. Right knee pain #2. Leukocytosis Discharge diagnosis: #1. Polyarthritis likely a rheumatology etiology #2. Leukocytosis persistent #3. Right knee pain improved #4. Left hand pain improved #5. HLA-B27 positive #6. Elevated ESR #7. Elevated LFTs Hospital course: This is a 27-year-old male with no significant past medical history that presented to the emergency department on 16 April secondary to right knee pain and inability to bear weight or walk. Patient was then admitted after getting up arthrocentesis that revealed a negative Gram stain. It was also negative for crystals. He was admitted for observation and IV antibiotics along with Solu-Medrol. At that point it was considered to be a possible septic joint. He was tested for Lyme's, gonorrhea given the polyarthritis. He was started on vancomycin, cefepime, doxycycline. Patient clinically improved in terms of pain, his labs however appeared to be persistent with white count in the high 19,000. He also had elevated ESR. A rheumatology consult was also placed, and after discussing the case, bleed secondary to be likely inflammatory arthritis and not a infectious etiology. At that point, antibiotics were then stopped. He was also advised by rheumatology that there is no added benefit of steroids beyond 20 mg of prednisone if this is indeed inflammatory arthritis. So he was stopped on the Solu-Medrol that he is getting IV. Laboratory examination also showed elevated LFTs. Right upper quadrant ultrasound was obtained which showed a fatty liver. It was believed that this could be held secondary to his the steroid use. The LFTs were downtrending prior to discharge once the Solu-Medrol was stopped. Hepatitis panel was also ordered which is pending. He is also negative for rheumatoid factor. Patient was also tested for possible hemachromatosis, iron studies however were normal. Other pending results include ceruloplasmin, hepatitis panel. He is ultimately discharged home given that his pain is under control. He was sent home on 10 mg by mouth twice a day of prednisone for the next week. Is also sent home on 40 mg of pantoprazole daily for GI prophylaxis. He has a follow-up appointment set up with his primary care provider, Dr. Pollock along with Dr. Naik, rheumatology in [place]. At the time of discharge she denied having any fever, chills, nausea or vomiting. - Patient Data Vitals - Most Recent: Last Vital Signs Temp 36.3 C 04/19/17 08:00 Pulse 88 04/19/17 08:00 Resp 18 04/19/17 08:00 BP 141/91 H 04/19/17 08:00 Pulse Ox 96 04/19/17 08:00 Weight - Most Recent: 92 kg I&O - Last 24 hours: Intake & Output 04/18/17 04/19/17 04/19/17 22:59 06:59 14:59 Intake Total 1370 Output Total 7 575 Balance -254 -593 Lab Results - Last 24 hrs: Laboratory Results - last 24 hr 04/16/17 04/16/17 04/18/17 Range/Units 05:35 05:50 08:23 WBC (4.0-11.0) K/uL RBC (4.50-5.90) M/uL Hgb (13.0-17.0) g/dL Hct (38.0-50.0) % MCV (80.0-98.0) fL MCH (27.0-32.0) pg MCHC (31.0-37.0) g/dL RDW Std Deviation (28.0-62.0) fl RDW Coeff of Rosario (11.0-15.0) % Plt Count (150-400) K/uL MPV (7.40-12.00) fL Add Manual Diff Neutrophils % (Manual) (48.0-80.0) % Band Neutrophils % % Lymphocytes % (Manual) (16.0-40.0) % Monocytes % (Manual) (0.0-15.0) % Nucleated RBC % /100WBC Absolute Seg Neuts (1.4-5.7) Band Neutrophils # Lymphocytes # (Manual) (0.6-2.4) Monocytes # (Manual) (0.0-0.8) Nucleated RBCs # K/uL ESR (0-14) mm/hr Sodium (136-146) mmol/L Potassium (3.5-5.1) mmol/L Chloride (98-110) mmol/L Carbon Dioxide (21-31) mmol/L BUN (6.0-23.0) mg/dL Creatinine (0.6-1.5) mg/dL Est Cr Clr Drug Dosing mL/min Estimated GFR (MDRD) ml/min Glucose (60-110) mg/dL Calcium (8.8-10.8) mg/dL Ferritin 236 (24-336) ng/mL Total Bilirubin (0.1-1.5) mg/dL AST (5-40) IU/L ALT (8-54) IU/L Alkaline Phosphatase (40-150) C-Reactive Protein (0.0-0.5) mg/dL Total Protein (6.0-8.0) g/dL Albumin (3.5-5.0) g/dL Globulin (2.0-3.5) g/dL Albumin/Globulin Ratio (1.3-2.8) Anti-Neutrophil Ab Negative (NEG) HLA-B27 Positive 04/19/17 04/19/17 04/19/17 Range/Units 05:06 05:06 05:06 WBC 20.73 H (4.0-11.0) K/uL RBC 5.20 (4.50-5.90) M/uL Hgb 14.8 (13.0-17.0) g/dL Hct 43.2 (38.0-50.0) % MCV 83.1 (80.0-98.0) fL MCH 28.5 (27.0-32.0) pg MCHC 34.3 (31.0-37.0) g/dL RDW Std Deviation 37.3 (28.0-62.0) fl RDW Coeff of Rosario 13 (11.0-15.0) % Plt Count 421 H (150-400) K/uL MPV 9.10 (7.40-12.00) fL Add Manual Diff YES Neutrophils % (Manual) 74 (48.0-80.0) % Band Neutrophils % 5 % Lymphocytes % (Manual) 15 L (16.0-40.0) % Monocytes % (Manual) 6 (0.0-15.0) % Nucleated RBC % 0.0 /100WBC Absolute Seg Neuts 15.3 H (1.4-5.7) Band Neutrophils # 1.0 Lymphocytes # (Manual) 3.1 H (0.6-2.4) Monocytes # (Manual) 1.2 H (0.0-0.8) Nucleated RBCs # 0 K/uL ESR 34 H (0-14) mm/hr Sodium 139 (136-146) mmol/L Potassium 3.9 (3.5-5.1) mmol/L Chloride 106 (98-110) mmol/L Carbon Dioxide 24 (21-31) mmol/L BUN 19 (6.0-23.0) mg/dL Creatinine 0.7 (0.6-1.5) mg/dL Est Cr Clr Drug Dosing 151.20 mL/min Estimated GFR (MDRD) > 60.0 ml/min Glucose 119 H (60-110) mg/dL Calcium 9.4 (8.8-10.8) mg/dL Ferritin (24-336) ng/mL Total Bilirubin 0.1 (0.1-1.5) mg/dL AST 42 H (5-40) IU/L ALT 248 H (8-54) IU/L Alkaline Phosphatase 106 (40-150) C-Reactive Protein (0.0-0.5) mg/dL Total Protein 7.4 (6.0-8.0) g/dL Albumin 3.4 L (3.5-5.0) g/dL Globulin 4.0 H (2.0-3.5) g/dL Albumin/Globulin Ratio 0.9 L (1.3-2.8) Anti-Neutrophil Ab (NEG) HLA-B27 04/19/17 Range/Units 05:06 WBC (4.0-11.0) K/uL RBC (4.50-5.90) M/uL Hgb (13.0-17.0) g/dL Hct (38.0-50.0) % MCV (80.0-98.0) fL MCH (27.0-32.0) pg MCHC (31.0-37.0) g/dL RDW Std Deviation (28.0-62.0) fl RDW Coeff of Rosario (11.0-15.0) % Plt Count (150-400) K/uL MPV (7.40-12.00) fL Add Manual Diff Neutrophils % (Manual) (48.0-80.0) % Band Neutrophils % % Lymphocytes % (Manual) (16.0-40.0) % Monocytes % (Manual) (0.0-15.0) % Nucleated RBC % /100WBC Absolute Seg Neuts (1.4-5.7) Band Neutrophils # Lymphocytes # (Manual) (0.6-2.4) Monocytes # (Manual) (0.0-0.8) Nucleated RBCs # K/uL ESR (0-14) mm/hr Sodium (136-146) mmol/L Potassium (3.5-5.1) mmol/L Chloride (98-110) mmol/L Carbon Dioxide (21-31) mmol/L BUN (6.0-23.0) mg/dL Creatinine (0.6-1.5) mg/dL Est Cr Clr Drug Dosing mL/min Estimated GFR (MDRD) ml/min Glucose (60-110) mg/dL Calcium (8.8-10.8) mg/dL Ferritin (24-336) ng/mL Total Bilirubin (0.1-1.5) mg/dL AST (5-40) IU/L ALT (8-54) IU/L Alkaline Phosphatase (40-150) C-Reactive Protein 2.86 H (0.0-0.5) mg/dL Total Protein (6.0-8.0) g/dL Albumin (3.5-5.0) g/dL Globulin (2.0-3.5) g/dL Albumin/Globulin Ratio (1.3-2.8) Anti-Neutrophil Ab (NEG) HLA-B27 Med Orders - Current: Current Medications Bisacodyl (Dulcolax) 5 mg PO DAILY PRN PRN Reason: Constipation Docusate Sodium (Colace) 100 mg PO BID PRN PRN Reason: Constipation Ibuprofen (Motrin) 400 mg PO TID [facility] Last Admin: 04/19/17 06:04 Dose: 400 mg Ketorolac Tromethamine (Toradol) 30 mg IV Q6H PRN PRN Reason: Pain (moderate 4-6) Last Admin: 04/18/17 04:25 Dose: 30 mg Morphine Sulfate (Morphine) 5 mg IVPUSH Q2H PRN PRN Reason: Pain (severe 7-10) Last Admin: 04/18/17 14:16 Dose: 5 mg Pantoprazole Sodium (Protonix) 40 mg PO DAILY [facility] Last Admin: 04/19/17 09:31 Dose: 40 mg Prednisone (Prednisone) 10 mg PO BID [facility] Last Admin: 04/19/17 09:31 Dose: 10 mg Sodium Chloride (Saline Flush) 10 ml FLUSH ASDIRECTED PRN PRN Reason: Keep Vein Open Sodium Chloride (Saline Flush) 2.5 ml FLUSH ASDIRECTED PRN PRN Reason: Keep Vein Open Sodium Chloride (Saline Flush) 10 ml FLUSH ASDIRECTED PRN PRN Reason: Keep Vein Open Sodium Chloride (Saline Flush) 2.5 ml FLUSH ASDIRECTED PRN PRN Reason: Keep Vein Open Temazepam (Restoril) 15 mg PO BEDTIME PRN PRN Reason: Sleep Tramadol HCl (Ultram) 50 mg PO Q8H PRN PRN Reason: Pain Last Admin: 04/18/17 08:54 Dose: 50 mg Discontinued Medications Acetaminophen (Tylenol Extra Strength) 1,000 mg PO ONETIME ONE Stop: 04/15/17 20:52 Last Admin: 04/15/17 20:59 Dose: 1,000 mg Doxycycline Hyclate (Vibramycin) 100 mg PO Q12HR [facility] Last Admin: 04/18/17 08:57 Dose: 100 mg Sodium Chloride (Normal Saline) 1,000 mls @ 999 mls/hr IV STAT ONE Stop: 04/15/17 21:35 Last Admin: 04/15/17 21:00 Dose: 999 mls/hr Sodium Chloride (Normal Saline) 1,000 mls @ 999 mls/hr IV STAT ONE Stop: 04/15/17 23:45 Last Admin: 04/15/17 22:59 Dose: 999 mls/hr Cefepime HCl 1 gm/ Premix 50 mls @ 100 mls/hr IV Q8H [facility] Last Admin: 04/16/17 07:32 Dose: 100 mls/hr Vancomycin HCl 1.5 gm/ Sodium (Chloride) 500 mls @ 333.333 mls/hr IV ONETIME ONE Stop: 04/16/17 01:29 Last Admin: 04/16/17 01:07 Dose: 333.333 mls/hr Sodium Chloride (Normal Saline) 1,000 mls @ 125 mls/hr IV ASDIRECTED [facility] Last Admin: 04/17/17 08:07 Dose: 125 mls/hr Doxycycline Hyclate 100 mg/ (Sodium Chloride) 100 mls @ 100 mls/hr IV Q12H [facility] Last Admin: 04/16/17 02:51 Dose: 100 mls/hr Vancomycin HCl 1.25 gm/ Sodium (Chloride) 250 mls @ 166.667 mls/hr IV Q8H [facility] Last Admin: 04/17/17 08:47 Dose: Not Given Ceftriaxone Sodium/Dextrose 1 (gm/ Premix) 50 mls @ 100 mls/hr IV Q24H [facility] Last Admin: 04/17/17 14:06 Dose: 100 mls/hr Vancomycin HCl 1.5 gm/ Sodium (Chloride) 500 mls @ 333.333 mls/hr IV Q8H [facility] Last Admin: 04/17/17 08:47 Dose: Not Given Vancomycin HCl 1.5 gm/ Sodium (Chloride) 500 mls @ 333.333 mls/hr IV Q8H [facility] Last Admin: 04/18/17 08:57 Dose: 333.333 mls/hr Piperacillin Sod/Tazobactam (Sod 3.375 gm/ Sodium Chloride) 50 mls @ 100 mls/ hr IV Q6H [facility] Last Admin: 04/18/17 14:24 Dose: Not Given Influenza Virus Vaccine (Pharmacy To Dose - Influenza Vaccine) 1 each IM ONETIME ONE Stop: 04/16/17 01:02 Influenza Virus Vaccine (Fluarix Quad [id number]) 60 mcg IM .ONCE ONE Stop: 04/16/17 10:01 Ketorolac Tromethamine (Toradol) 30 mg IVPUSH ONETIME ONE Stop: 04/15/17 20:36 Last Admin: 04/15/17 21:00 Dose: 30 mg Lidocaine HCl (Xylocaine 1%) 20 ml INJECT ONETIME ONE Stop: 04/15/17 22:17 Last Admin: 04/15/17 22:19 Dose: 20 ml Lidocaine HCl (Xylocaine 1%) Confirm Administered Dose 20 ml .ROUTE .STK-MED ONE Stop: 04/15/17 22:18 Last Admin: 04/15/17 22:42 Dose: Not Given Lorazepam (Ativan) 2 mg IVPUSH ONETIME ONE Stop: 04/15/17 22:46 Last Admin: 04/15/17 22:59 Dose: 2 mg Methylprednisolone Sodium Succinate (Solu-Medrol) 125 mg IVPUSH Q12H [facility] Last Admin: 04/16/17 11:10 Dose: 125 mg Methylprednisolone Sodium Succinate (Solu-Medrol) 125 mg IVPUSH Q12H [facility] Last Admin: 04/18/17 09:34 Dose: 125 mg Prednisone (Prednisone) 60 mg PO DAILY [facility] Last Admin: 04/17/17 11:18 Dose: 60 mg Vancomycin HCl (Pharmacy To Dose - Vancomycin) 1 dose .XX ASDIRECTED [facility] *Q Meaningful Use (DIS) - VTE *Q VTE Criteria *Q: - Stroke *Q Stroke Criteria *Q: - AMI *Q AMI Criteria *Q: <Dereck Alarcon - Last Filed: 04/19/17 19:59> Discharge Summary - Patient Summary/Data Consults: Consultations 04/16/17 14:25 Consult to Physician [CONS] Urgent - Patient Data Vitals - Most Recent: Last Vital Signs Temp 36.3 C 04/19/17 08:00 Pulse 88 04/19/17 08:00 Resp 18 04/19/17 08:00 BP 141/91 H 04/19/17 08:00 Pulse Ox 96 04/19/17 08:00 I&O - Last 24 hours: Intake & Output 04/19/17 04/19/17 04/19/17 06:59 14:59 22:59 Output Total 575 Balance -575 Lab Results - Last 24 hrs: Laboratory Results - last 24 hr 04/16/17 04/18/17 04/19/17 Range/Units 05:35 08:23 05:06 WBC 20.73 H (4.0-11.0) K/uL RBC 5.20 (4.50-5.90) M/uL Hgb 14.8 (13.0-17.0) g/dL Hct 43.2 (38.0-50.0) % MCV 83.1 (80.0-98.0) fL MCH 28.5 (27.0-32.0) pg MCHC 34.3 (31.0-37.0) g/dL RDW Std Deviation 37.3 (28.0-62.0) fl RDW Coeff of Rosario 13 (11.0-15.0) % Plt Count 421 H (150-400) K/uL MPV 9.10 (7.40-12.00) fL Add Manual Diff YES Neutrophils % (Manual) 74 (48.0-80.0) % Band Neutrophils % 5 % Lymphocytes % (Manual) 15 L (16.0-40.0) % Monocytes % (Manual) 6 (0.0-15.0) % Nucleated RBC % 0.0 /100WBC Absolute Seg Neuts 15.3 H (1.4-5.7) Band Neutrophils # 1.0 Lymphocytes # (Manual) 3.1 H (0.6-2.4) Monocytes # (Manual) 1.2 H (0.0-0.8) Nucleated RBCs # 0 K/uL ESR (0-14) mm/hr Sodium (136-146) mmol/L Potassium (3.5-5.1) mmol/L Chloride (98-110) mmol/L Carbon Dioxide (21-31) mmol/L BUN (6.0-23.0) mg/dL Creatinine (0.6-1.5) mg/dL Est Cr Clr Drug Dosing mL/min Estimated GFR (MDRD) ml/min Glucose (60-110) mg/dL Calcium (8.8-10.8) mg/dL Ferritin 236 (24-336) ng/mL Total Bilirubin (0.1-1.5) mg/dL AST (5-40) IU/L ALT (8-54) IU/L Alkaline Phosphatase (40-150) C-Reactive Protein (0.0-0.5) mg/dL Total Protein (6.0-8.0) g/dL Albumin (3.5-5.0) g/dL Globulin (2.0-3.5) g/dL Albumin/Globulin Ratio (1.3-2.8) Anti-Neutrophil Ab Negative (NEG) 04/19/17 04/19/17 04/19/17 Range/Units 05:06 05:06 05:06 WBC (4.0-11.0) K/uL RBC (4.50-5.90) M/uL Hgb (13.0-17.0) g/dL Hct (38.0-50.0) % MCV (80.0-98.0) fL MCH (27.0-32.0) pg MCHC (31.0-37.0) g/dL RDW Std Deviation (28.0-62.0) fl RDW Coeff of Rosario (11.0-15.0) % Plt Count (150-400) K/uL MPV (7.40-12.00) fL Add Manual Diff Neutrophils % (Manual) (48.0-80.0) % Band Neutrophils % % Lymphocytes % (Manual) (16.0-40.0) % Monocytes % (Manual) (0.0-15.0) % Nucleated RBC % /100WBC Absolute Seg Neuts (1.4-5.7) Band Neutrophils # Lymphocytes # (Manual) (0.6-2.4) Monocytes # (Manual) (0.0-0.8) Nucleated RBCs # K/uL ESR 34 H (0-14) mm/hr Sodium 139 (136-146) mmol/L Potassium 3.9 (3.5-5.1) mmol/L Chloride 106 (98-110) mmol/L Carbon Dioxide 24 (21-31) mmol/L BUN 19 (6.0-23.0) mg/dL Creatinine 0.7 (0.6-1.5) mg/dL Est Cr Clr Drug Dosing 151.20 mL/min Estimated GFR (MDRD) > 60.0 ml/min Glucose 119 H (60-110) mg/dL Calcium 9.4 (8.8-10.8) mg/dL Ferritin (24-336) ng/mL Total Bilirubin 0.1 (0.1-1.5) mg/dL AST 42 H (5-40) IU/L ALT 248 H (8-54) IU/L Alkaline Phosphatase 106 (40-150) C-Reactive Protein 2.86 H (0.0-0.5) mg/dL Total Protein 7.4 (6.0-8.0) g/dL Albumin 3.4 L (3.5-5.0) g/dL Globulin 4.0 H (2.0-3.5) g/dL Albumin/Globulin Ratio 0.9 L (1.3-2.8) Anti-Neutrophil Ab (NEG) Med Orders - Current: Current Medications Discontinued Medications Acetaminophen (Tylenol Extra Strength) 1,000 mg PO ONETIME ONE Stop: 04/15/17 20:52 Last Admin: 04/15/17 20:59 Dose: 1,000 mg Bisacodyl (Dulcolax) 5 mg PO DAILY PRN PRN Reason: Constipation Docusate Sodium (Colace) 100 mg PO BID PRN PRN Reason: Constipation Doxycycline Hyclate (Vibramycin) 100 mg PO Q12HR [facility] Last Admin: 04/18/17 08:57 Dose: 100 mg Sodium Chloride (Normal Saline) 1,000 mls @ 999 mls/hr IV STAT ONE Stop: 04/15/17 21:35 Last Admin: 04/15/17 21:00 Dose: 999 mls/hr Sodium Chloride (Normal Saline) 1,000 mls @ 999 mls/hr IV STAT ONE Stop: 04/15/17 23:45 Last Admin: 04/15/17 22:59 Dose: 999 mls/hr Cefepime HCl 1 gm/ Premix 50 mls @ 100 mls/hr IV Q8H [facility] Last Admin: 04/16/17 07:32 Dose: 100 mls/hr Vancomycin HCl 1.5 gm/ Sodium (Chloride) 500 mls @ 333.333 mls/hr IV ONETIME ONE Stop: 04/16/17 01:29 Last Admin: 04/16/17 01:07 Dose: 333.333 mls/hr Sodium Chloride (Normal Saline) 1,000 mls @ 125 mls/hr IV ASDIRECTED [facility] Last Admin: 04/17/17 08:07 Dose: 125 mls/hr Doxycycline Hyclate 100 mg/ (Sodium Chloride) 100 mls @ 100 mls/hr IV Q12H [facility] Last Admin: 04/16/17 02:51 Dose: 100 mls/hr Vancomycin HCl 1.25 gm/ Sodium (Chloride) 250 mls @ 166.667 mls/hr IV Q8H [facility] Last Admin: 04/17/17 08:47 Dose: Not Given Ceftriaxone Sodium/Dextrose 1 (gm/ Premix) 50 mls @ 100 mls/hr IV Q24H [facility] Last Admin: 04/17/17 14:06 Dose: 100 mls/hr Vancomycin HCl 1.5 gm/ Sodium (Chloride) 500 mls @ 333.333 mls/hr IV Q8H [facility] Last Admin: 04/17/17 08:47 Dose: Not Given Vancomycin HCl 1.5 gm/ Sodium (Chloride) 500 mls @ 333.333 mls/hr IV Q8H [facility] Last Admin: 04/18/17 08:57 Dose: 333.333 mls/hr Piperacillin Sod/Tazobactam (Sod 3.375 gm/ Sodium Chloride) 50 mls @ 100 mls/ hr IV Q6H [facility] Last Admin: 04/18/17 14:24 Dose: Not Given Ibuprofen (Motrin) 400 mg PO TID [facility] Last Admin: 04/19/17 06:04 Dose: 400 mg Influenza Virus Vaccine (Pharmacy To Dose - Influenza Vaccine) 1 each IM ONETIME ONE Stop: 04/16/17 01:02 Influenza Virus Vaccine (Fluarix Quad [id number]) 60 mcg IM .ONCE ONE Stop: 04/16/17 10:01 Ketorolac Tromethamine (Toradol) 30 mg IVPUSH ONETIME ONE Stop: 04/15/17 20:36 Last Admin: 04/15/17 21:00 Dose: 30 mg Ketorolac Tromethamine (Toradol) 30 mg IV Q6H PRN PRN Reason: Pain (moderate 4-6) Last Admin: 04/18/17 04:25 Dose: 30 mg Lidocaine HCl (Xylocaine 1%) 20 ml INJECT ONETIME ONE Stop: 04/15/17 22:17 Last Admin: 04/15/17 22:19 Dose: 20 ml Lidocaine HCl (Xylocaine 1%) Confirm Administered Dose 20 ml .ROUTE .STK-MED ONE Stop: 04/15/17 22:18 Last Admin: 04/15/17 22:42 Dose: Not Given Lorazepam (Ativan) 2 mg IVPUSH ONETIME ONE Stop: 04/15/17 22:46 Last Admin: 04/15/17 22:59 Dose: 2 mg Methylprednisolone Sodium Succinate (Solu-Medrol) 125 mg IVPUSH Q12H [facility] Last Admin: 04/16/17 11:10 Dose: 125 mg Methylprednisolone Sodium Succinate (Solu-Medrol) 125 mg IVPUSH Q12H [facility] Last Admin: 04/18/17 09:34 Dose: 125 mg Morphine Sulfate (Morphine) 5 mg IVPUSH Q2H PRN PRN Reason: Pain (severe 7-10) Last Admin: 04/18/17 14:16 Dose: 5 mg Pantoprazole Sodium (Protonix) 40 mg PO DAILY [facility] Last Admin: 04/19/17 09:31 Dose: 40 mg Prednisone (Prednisone) 60 mg PO DAILY [facility] Last Admin: 04/17/17 11:18 Dose: 60 mg Prednisone (Prednisone) 10 mg PO BID [facility] Last Admin: 04/19/17 09:31 Dose: 10 mg Sodium Chloride (Saline Flush) 10 ml FLUSH ASDIRECTED PRN PRN Reason: Keep Vein Open Sodium Chloride (Saline Flush) 2.5 ml FLUSH ASDIRECTED PRN PRN Reason: Keep Vein Open Sodium Chloride (Saline Flush) 10 ml FLUSH ASDIRECTED PRN PRN Reason: Keep Vein Open Sodium Chloride (Saline Flush) 2.5 ml FLUSH ASDIRECTED PRN PRN Reason: Keep Vein Open Temazepam (Restoril) 15 mg PO BEDTIME PRN PRN Reason: Sleep Tramadol HCl (Ultram) 50 mg PO Q8H PRN PRN Reason: Pain Last Admin: 04/18/17 08:54 Dose: 50 mg Vancomycin HCl (Pharmacy To Dose - Vancomycin) 1 dose .XX ASDIRECTED AYAH *Q Meaningful Use (DIS) - VTE *Q VTE Criteria *Q: - Stroke *Q Stroke Criteria *Q: - AMI *Q AMI Criteria *Q: - Free Text/Narrative Note: I have examined the patient. I have discussed findings and treatment plan with resident. I agree with the assessment and plan outlined in the following resident's note.
== END 2017-04-19 12:00 | disposition home or self-care (01) | DRG 554 ==
LOC: MW.ED 19:49 → MW.MS 23:52
PROVIDERS: ADMIT Family Medicine; ATTEND Family Medicine
DX: M06.4 Inflammatory polyarthropathy (principal); M25.461 Effusion, right knee; D72.829 Elevated white blood cell count, unspecified; R79.89 Other specified abnormal findings of blood chemistry; K76.0 Fatty (change of) liver, not elsewhere classified; R74.8 Abnormal levels of other serum enzymes; M25.542 Pain in joints of left hand; M25.561 Pain in right knee; M25.512 Pain in left shoulder; M79.671 Pain in right foot; F17.200 Nicotine dependence, unspecified, uncomplicated
CPT/HCPCS: 36415; 73120-26-LT; 73120-LT; 73562-26-RT; 73562-RT; 73630-26-RT; 73630-RT; 76705; 76705-26; 80053; 80074; 80202; 82150; 82390; 82728; 82945; 83550; 83605; 83690; 83735; 83986; 84157; 84550; 85025; 85652; 86038; 86140; 86200; 86430; 86618; 86812; 87070; 87205; 87491; 87591; 89050; 89060; 96361; 96374; 96375; 99282; 99284-25; A9270-GY; J0692; J0696; J1885; J2060; J2270; J2930; J3370; J7030; J7040; J7050

== ENCOUNTER 2017-04-19 18:00 | Emergency (ER) | payer SELFPAY ==
[2017-04-19] MEDS ORDERED: Sodium Chloride 0.9% 1,000 ML IV ONE (19:05)
[2017-04-19] MEDS ORDERED: methylPREDNISolone Sodium Succinate 125 MG/2 ML SDV IVPUSH ONE (19:06)
[2017-04-19] MEDS ORDERED: diphenhydrAMINE 50 MG/ML SDV IVPUSH ONE (19:06)
--- NOTE | 2017-04-19 19:16 | EDM.PDOC ---
ED HPI GENERAL MEDICAL PROBLEM - General Chief Complaint: Allergic Reaction Stated Complaint: PT ALLERGIC TO MEDICATION Time Seen by Provider: 04/19/17 18:45 Source of Information: Reports: Patient History Limitations: Reports: No Limitations - History of Present Illness INITIAL COMMENTS - FREE TEXT/NARRATIVE: History of present illness: [27-year-old male recently discharged from the hospital comes back in with diffuse rash. Patient indicates that he thinks some of the antibiotics that was provided to him while he was in the hospital.] Review of systems: As per history of present illness and below otherwise all systems reviewed and negative. Past medical history: As per history of present illness and as reviewed below otherwise noncontributory. Surgical history: As per history of present illness and as reviewed below otherwise noncontributory. Social history: No reported history of drug or alcohol abuse. Family history: As per history of present illness and as reviewed below otherwise noncontributory. Physical exam: HEENT: Atraumatic, normocephalic, pupils reactive, negative for conjunctival pallor or scleral icterus, mucous membranes moist, throat clear, neck supple, nontender, trachea midline. Lungs: Clear to auscultation, breath sounds equal bilaterally, chest nontender. Heart: S1S2, regular, negative for clicks, rubs, or JVD. Abdomen: Soft, nondistended, nontender. Negative for masses or hepatosplenomegaly. Negative for costovertebral tenderness. Pelvis: Stable nontender. Genitourinary: Deferred. Rectal: Deferred. Extremities: Atraumatic, negative for cords or calf pain. Neurovascular unremarkable. Neuro: Awake, alert, oriented. Cranial nerves II through XII unremarkable. Cerebellum unremarkable. Motor and sensory unremarkable throughout. Exam nonfocal. Skin: Diffuse hives scattered over the extremities Diagnostics: [] Therapeutics: [IV fluid, solu Medrol, Benadryl] Impression: [Hives] Plan: [Brief run of pain medication patient instruction to follow-up] Definitive disposition and diagnosis as appropriate pending reevaluation and review of above. Generalized Pain Score (Numeric/FACES): 5 - Related Data Allergies Allergy/AdvReac Type Severity Reaction Status Date / Time No Known Allergies Allergy Verified 04/19/17 18:27 Home Meds: Home Meds Pantoprazole Sodium [Protonix] 40 mg PO QAM 30 Days #30 tablet 04/19/17 [Rx] Prednisone [IJD: Prednisone] 10 mg PO BID 7 Days #14 tab 04/19/17 [Rx] Past Medical History - Past Health History Medical/Surgical History: Denies Medical/Surgical History Gastrointestinal History: Reports: Irritable Bowel Syndrome Oncologic (Cancer) History: Reports: None - Infectious Disease History Infectious Disease History: Reports: Chicken Pox - Past Surgical History GI Surgical History: Reports: Appendectomy Social & Family History - Family History Family Medical History: Noncontributory - Tobacco Use Smoking Status *Q: Current Every Day Smoker Years of Tobacco use: 10 Packs/Tins Daily: 1 Second Hand Smoke Exposure: No - Caffeine Use Caffeine Use: Reports: None - Alcohol Use Days Per Week of Alcohol Use: 1 Number of Drinks Per Day: 12 Total Drinks Per Week: 12 - Recreational Drug Use Recreational Drug Use: No Drug Use in Last 12 Months: Yes Recreational Drug Type: Reports: Marijuana/Hashish Recreational Drug Use Frequency: Daily ED ROS ALLERGIC REACTION - Review of Systems Review Of Systems: See Below (See history of present illness) ED EXAM GENERAL NO PERIP PULSE - Physical Exam Exam: See Below (See history of present illness) Course - Vital Signs Last Recorded V/S: Last Vital Signs Temp 37.7 C 04/19/17 18:33 Pulse 99 04/19/17 18:33 Resp 16 04/19/17 18:33 BP 131/89 04/19/17 18:33 Pulse Ox 96 04/19/17 18:33 - Orders/Labs/Meds Meds: Medications Discontinued Medications Generic Name Dose Route Start Last Admin Trade Name Andres PRN Reason Stop Dose Admin Diphenhydramine HCl 50 mg 04/19/17 19:06 04/19/17 19:38 Benadryl IVPUSH 04/19/17 19:07 50 mg ONETIME ONE Administration Sodium Chloride 1,000 mls @ 999 mls/hr 04/19/17 19:05 04/19/17 19:39 Normal Saline IV 04/19/17 20:05 999 mls/hr STAT ONE Administration Methylprednisolone Sodium Succinate 125 mg 04/19/17 19:06 04/19/17 19:39 Solu-Medrol IVPUSH 04/19/17 19:07 125 mg ONETIME ONE Administration Departure - Departure Time of Disposition: 20:37 Disposition: Home, Self-Care 01 Condition: Good Clinical Impression: Hives - Discharge Information Referrals: PCP,None [Primary Care Provider] - Additional Instructions: The following information is given to patients seen in the emergency department who are being discharged to home. This information is to outline your options for follow-up care. We provide all patients seen in our emergency department with a follow-up referral. The need for follow-up, as well as the timing and circumstances, are variable depending upon the specifics of your emergency department visit. If you don't have a primary care physician on staff, we will provide you with a referral. We always advise you to contact your personal physician following an emergency department visit to inform them of the circumstance of the visit and for follow-up with them and/or the need for any referrals to a consulting specialist. The emergency department will also refer you to a specialist when appropriate. This referral assures that you have the opportunity for follow-up care with a specialist. All of these measure are taken in an effort to provide you with optimal care, which includes your follow-up. Under all circumstances we always encourage you to contact your private physician who remains a resource for coordinating your care. When calling for follow-up care, please make the office aware that this follow-up is from your recent emergency room visit. If for any reason you are refused follow-up, please contact the [facility] Emergency Department at and asked to speak to the emergency department charge nurse. Please follow-up with the still operator as directed You been given a brief run of pain medicine, please use them sparingly as it understandably painful to have this global inflammation it is important that you keep the opiate use to a minimum as it just masks the condition. Return to ED as needed as discussed
== END 2017-04-19 21:15 | disposition home or self-care (01) ==
LOC: MW.ED 18:00
DX: L50.9 Urticaria, unspecified (principal); F17.210 Nicotine dependence, cigarettes, uncomplicated
CPT/HCPCS: 96361; 96374; 96375; 99282; J1200; J2930; J7040